=== PATIENT | male | born 1945 | race Caucasian/White ===

== ENCOUNTER 2024-02-08 09:11 | Outpatient (CLI) | payer MEDICARE, SELFPAY ==
[2024-02-08 16:48] LABS: Basophils # 0.1 K/mm3 (0-0.2); Basophils % 1.2 % (0.1-2.0); Eosinophils # 0.3 K/mm3 (0.0-0.4); Eosinophils % 4.5 % (0.1-12.0); Hematocrit 38.7 % (42.0-52.0); Hemoglobin 11.7 g/dL (14.1-18.0); Lymphocytes # 2.3 K/mm3 (0.7-4.5); Lymphocytes % 35.8 % (10-50); Mean Corpuscular HGB Conc 30.3 g/dL (31.8-35.4); Mean Corpuscular Hemoglobin 25.7 pg (27.0-31.2); Mean Corpuscular Volume 84.8 fl (80-94); Monocytes # 0.5 K/mm3 (0.1-1.0); Monocytes % 8.1 % (1.7-9.3); Neutrophils # 3.2 K/mm3 (1.8-7.8); Neutrophils % 50.4 % (37.0-80.0); Platelet Count 245 K/mm3 (142-424); Red Blood Count 4.56 M/mm3 (4.60-6.20); Red Cell Distribution Width 18.1 % (11.5-17.5); White Blood Count 6.3 K/mm3 (4.8-10.8)
[2024-02-08 16:54] LABS: Alanine Aminotransferase 11 U/L (12-78); Albumin/Globulin Ratio 1.3 (1.1-1.8); Alkaline Phosphatase 63 U/L (38-126); Anion Gap 13.2 mEq/L (5-15); Aspartate Amino Transferase 38 U/L (17-59); Bilirubin,Total 0.3 mg/dl (0.2-1.3); Blood Urea Nitrogen 19 mg/dl (9-20); Calcium 9.2 mg/dl (8.4-10.2); Carbon Dioxide 26 mmol/L (22.0-30.0); Chloride 103 mmol/L (98-107); Estimated Glomerular Filt Rate 53 ml/min (>60); GFR (African American) 65 ML/MIN (>60); Globulin 3.1 g/dL (1.3-3.2); Glucose 71 mg/dl (74-100); Potassium 4.2 mmoL/L (3.5-5.1); Sodium 138 mmol/L (136-145); Total Protein,Serum 7.1 g/dl (6.3-8.2)
[2024-02-08 17:25] LABS: Prostate Specific Ag Screen 9.6 ng/ml (0.0-4.0)
== END 2024-02-08 23:59 | disposition home or self-care (01) ==
LOC: LAB.DROPOF 02-10 09:12
PROVIDERS: PCP Family Medicine; Visit Provider Family Medicine
DX: B96.20 Unspecified Escherichia coli [E. coli] as the cause of diseases classified elsewhere (principal); R35.0 Frequency of micturition; I10 Essential (primary) hypertension; Z12.5 Encounter for screening for malignant neoplasm of prostate; F17.210 Nicotine dependence, cigarettes, uncomplicated
CPT/HCPCS: 80053; 85025; 87086; 87088; 87186; G0103

== ENCOUNTER 2024-03-07 12:17 | Outpatient (CLI) | payer MEDICARE, SELFPAY ==
--- NOTE | 2024-03-07 12:18 | US_ITS ---
FINAL REPORT CLINICAL HISTORY: overactive bladder COMPARISON: None FINDINGS: ULTRASOUND BLADDER WITH POST VOID RESIDUAL Bladder volumes were estimated based on 3 dimensional measurements, pre- and postvoid. Prevoid bladder volume: 187 mls Postvoid bladder volume: 120 mls The right ureteral jet is identified. The prostate is not imaged. IMPRESSION: Estimated bladder volumes as above with significant postvoid residual.. Reviewed, Interpreted and Dictated by Andre Ford III, MD Transcribed by Kori Gomez Authenticated and [facility]
--- NOTE | 2024-03-07 12:18 | US_ITS ---
FINAL REPORT CLINICAL HISTORY: overactive bladder COMPARISON: None FINDINGS: RENAL ULTRASOUND Ultrasound images of the kidneys were obtained. The right kidney measures 10.4 cm in length. The left kidney measures 10.0 cm in length. Small left renal cysts are noted. IMPRESSION: Small left renal cysts. Reviewed, Interpreted and Dictated by Andre Ford III, MD Transcribed by Kori Gomez Authenticated and [facility]
--- NOTE | 2024-03-07 12:18 | US_ITS ---
FINAL REPORT CLINICAL HISTORY: Groin pain COMPARISON: None FINDINGS: Limited ultrasound images were obtained of the right groin region. There is a probable right inguinal hernia. An enlarged probable reactive right inguinal node is noted. IMPRESSION: Probable right inguinal hernia. Probable right reactive inguinal node. CT could further evaluate. Reviewed, Interpreted and Dictated by Andre Ford III, MD Transcribed by Kori Gomez Authenticated and . [facility]
--- NOTE | 2024-03-07 12:18 | US_ITS ---
FINAL REPORT CLINICAL HISTORY: Groin pain COMPARISON: None FINDINGS: Limited ultrasound images were obtained of the left groin region. There is no evidence of mass or hernia. IMPRESSION: No evidence of mass or hernia. If indicated, CT may be helpful for further evaluation. Reviewed, Interpreted and Dictated by Andre Ford III, MD Transcribed by Kori Gomez Authenticated and . [facility]
--- NOTE | 2024-03-07 12:18 | MM_ITS ---
PROCEDURE INFORMATION: Exam: Bilateral Diagnostic Breast Tomosynthesis Exam date and time: 03/07/2024 1:11 PM Age: 78 years old Clinical indication: Left breast thickening; C/O enlarged breast with pain. He states he is on some bladder and prostate meds TECHNIQUE: Imaging protocol: Bilateral Diagnostic tomosynthesis and 2D mammography including computer-aided detection (CAD) when performed. Unilateral or bilateral exam. COMPARISON: No relevant prior studies available. FINDINGS: MAMMOGRAPHY: Breast composition: The breasts are almost entirely fatty. Breast mammogram findings: Minimal retroareolar breast tissue is present bilaterally most consistent with benign gynecomastia. There is no stellate mass, architectural distortion or suspicious microcalcifications in either breast to suggest malignancy. No skin thickening or axillary adenopathy. IMPRESSION: Patient should return for left breast ultrasound for full evaluation of breast thickening and pain ASSESSMENT: BI-RADS Category 0: Incomplete- Need Additional Imaging Evaluation and/or Prior Mammograms for Comparison.
== END 2024-03-07 23:59 | disposition home or self-care (01) ==
LOC: RAD 12:18
PROVIDERS: PCP Family Medicine; Visit Provider Urology
DX: N32.81 Overactive bladder (principal); N32.0 Bladder-neck obstruction; N64.4 Mastodynia
CPT/HCPCS: 76770; 76857; 76882; 77062; 77066; G0279

== ENCOUNTER 2024-03-16 10:59 | Outpatient (POV) | payer MEDICARE, SELFPAY | END 2024-03-16 23:59 | disposition home or self-care (01) | LOC: SC 11:00 | PROVIDERS: Visit Provider Specialist/Technologist | DX: Z00.00 Encounter for general adult medical examination without abnormal findings (principal) ==

== ENCOUNTER 2024-05-18 20:55 | Inpatient (IN) | payer MEDICARE, SELFPAY ==
[2024-05-18 20:55] VITALS: BP 100/63; PULSE 79; RESP 18; TEMP 38.3; O2SAT 94; BMI 25.1
--- NOTE | 2024-05-18 21:04 | XR_ITS ---
PROCEDURE INFORMATION: Exam: XR Chest Exam date and time: 05/18/2024 8:59 PM Age: 78 years old Clinical indication: Other: Body aches; Additional info: Fever, body aches TECHNIQUE: Imaging protocol: Radiologic exam of the chest. Views: 2 views. COMPARISON: No relevant prior studies available. FINDINGS: Lungs: Left basilar opacities are noted. Lungs are otherwise clear. Calcified granuloma right upper lung clark. Pleural spaces: Unremarkable. No pleural effusion. No pneumothorax. Heart/Mediastinum: Unremarkable. No cardiomegaly. Bones/joints: Unremarkable. IMPRESSION: Left basilar opacities may be atelectasis although superimposed infiltrates not excluded. Advise short-term follow-up chest x-ray in 3 to 6 weeks to ensure resolution.
--- NOTE | 2024-05-18 21:05 | ECG_ITS ---
APPROVED REPORT Exam: Resting ECG HR:72 bpm ECG Measurements Heart Rate 72 AXES MA 148 P 22 QRSd 101 QRS 31 QT 407 T 97 QTc 432 Conclusion SINUS RHYTHM INCOMPLETE RIGHT BUNDLE BRANCH BLOCK [90+ ms QRS DURATION, TERMINAL R IN V1/V2, 40+ ms S IN I/aVL/V4/V5/V6] ST DEVIATION AND MODERATE T-WAVE ABNORMALITY, CONSIDER LATERAL ISCHEMIA [-0.1+ mV T-WAVE IN I/aVL/V5/V6] Electronically signed by : EVANS MCADAMS, 05/18/2024 22:04:36
[2024-05-18] MEDS: IBUPROFEN 400 MG TABLET PO (21:08)
[2024-05-18] MEDS: LACTATED RINGERS 1155 ML IV (21:08)
--- NOTE | 2024-05-18 21:08 | PC.NURSE ---
up in wc with 1 assist, taken to rad by radio intelligence operator
[2024-05-18 21:09] LABS: Coronavirus 19, PCR Not Detected (NotDetected); Influenza A, PCR Not Detected (NotDetected); Influenza B, PCR Not Detected (NotDetected)
[2024-05-18 21:18] LABS: Chloride 104 mmol/L (98-107)
[2024-05-18 21:19] LABS: Microscopic, Urine URINE MICROSCOPIC (MICROSCOPIC)
[2024-05-18 21:19] LABS: Albumin Level 3.8 g/dl (3.5-5.0); Sodium 133 mmol/L (136-145)
[2024-05-18 21:20] LABS: INR 0.97 (0.9-1.1); Prothrombin Time 10.9 seconds (10.1-12.5)
[2024-05-18 21:21] LABS: Alanine Aminotransferase 18 U/L (12-78); Aspartate Amino Transferase 37 U/L (17-59); Blood Urea Nitrogen 28 mg/dl (9-20); Carbon Dioxide 17 mmol/L (22.0-30.0); Creatinine Clearance Estimated 42 mL/min (50-200); Estimated Glomerular Filt Rate 42 ml/min (>60); GFR (African American) 51 ML/MIN (>60)
[2024-05-18 21:22] LABS: Appearance,Urine SL CLOUDY (Clear); Bilirubin,Urine Negative (Negative); Blood, Urine 1+ (Negative); Color,Urine YELLOW (Yellow); Glucose,Urine (UA) Negative (Negative); Ketones,Urine TRACE (Negative); Leukocyte Esterase,Urine 2+ (Negative); Nitrate,Urine POSITIVE (Negative); PH,Urine 5.5 (5.0-8.5); Protein,Urine 1+ (Negative); Urobilinogen,Urine 0.2 EU/dl (0.2)
[2024-05-18 21:22] LABS: Alkaline Phosphatase 45 U/L (38-126); Bilirubin,Total 0.9 mg/dl (0.2-1.3); Calcium 7.9 mg/dl (8.4-10.2); Glucose 101 mg/dl (74-100)
[2024-05-18 21:25] LABS: Basophils # 0.1 K/mm3 (0-0.2); Basophils % 0.5 % (0.1-2.0); Eosinophils # 0.1 K/mm3 (0.0-0.4); Eosinophils % 0.4 % (0.1-12.0); Hematocrit 38.3 % (42.0-52.0); Hemoglobin 11.5 g/dL (14.1-18.0); Lymphocytes # 1.3 K/mm3 (0.7-4.5); Lymphocytes % 11.4 % (10-50); Mean Corpuscular Volume 83.3 fl (80-94); Mean Platelet Volume 9.8 fl (7.4-10.4); Monocytes # 1.1 K/mm3 (0.1-1.0); Monocytes % 9.1 % (1.7-9.3); Neutrophils # 9.3 K/mm3 (1.8-7.8); Neutrophils % 78.6 % (37.0-80.0); Platelet Count 154 K/mm3 (142-424); Red Blood Count 4.59 M/mm3 (4.60-6.20); White Blood Count 11.8 K/mm3 (4.8-10.8)
[2024-05-18 21:32] LABS: Bacteria,Urine 3+ /lpf; WBC,Urine TNTC #/hpf (0-3)
[2024-05-18 21:34] LABS: Lactic Acid 3.1 mmol/L (0.7-2.1)
[2024-05-18 21:47] LABS: Albumin/Globulin Ratio 1.2 (1.1-1.8); Globulin 3.3 g/dL (1.3-3.2); Total Protein,Serum 7.1 g/dl (6.3-8.2)
--- NOTE | 2024-05-18 21:57 | ED_ITS ---
Discharge Plan Disposition Patient Disposition: Home, Self-Care Condition: Good Prescriptions Prescriptions: New amoxicillin-pot clavulanate 875-125 mg tablet 1 tab PO BID Qty: 20 0RF No Action doxepin 25 mg capsule 25 mg PO HS Qty: 30 1RF oxybutynin chloride 10 mg tablet extended release 24hr 10 mg PO DAILY Qty: 90 3RF tamsulosin [Flomax] 0.4 mg capsule 0.4 mg PO DAILY Qty: 30 3RF amlodipine 2.5 mg tablet 2.5 mg PO DAILY Qty: 30 2RF Referrals Follow up/Referrals: Calos Odom MD [Primary Care Provider] - See instructions Activity Restrictions/Add. Instructions Additional Instructions/Restrictions: It is very important that you take your antibiotics as prescribed and follow-up with your primary care provider closely for continued evaluation and management or return or call the ambulance at any time for any worsening of her symptoms or if you are not improving despite taking antibiotics. Clinical Impressions Clinical Impression: Acute UTI, Pneumonia Instructions Patient Instructions: Pneumonia-Adult Print Language Print Language: R[place] Discharge ED Provider: Sylvia Stephens General Adult HPI General Chief complaint: Fever Stated complaint: SOB, cold symptoms Time Seen by Provider: 05/18/24 21:03 Mode of Arrival: EMS Source of Information: Patient Limitations: No Limitations Description of Symptoms (Recalled from ER Triage Doc. by RN): Patient presented to the ED for generally not feeling well. Patient states he has not felt well for the last few days. He states that he drinks a couple beers every day and is a poor historian but did mention having horrible body aches yesterday. EMS stated patient c/o just not feeling well and feeling SOA. Patient does not c/o being SOA at this time, o2 sats mid to high 90s on RA. Oral temp 101. History of Present Illness HPI narrative: Patient is a 78-year-old male with past medical history alcohol use disorder presenting with generalized malaise and not feeling well. Patient arrives via EMS and states that he has not felt well for the past couple of days. He reports drinking a couple of beers per day but does have a history of alcohol use disorder. He notes some bodyaches and chills yesterday and he did have a family reunion that he went to recently but no known specific sick contacts. He had initially complained of being short of breath but did not note this to EMS nor at present. Denies any chest pain, abdominal pain, nausea, vomiting. Related Data Previous Rx's ?Medication ?Instructions ?Recorded doxepin 25 mg capsule 25 mg PO HS sleep #30 caps 02/09/24 oxybutynin chloride 10 mg 10 mg PO DAILY #90 tabs 03/21/24 tablet,extended release 24 hr tamsulosin 0.4 mg capsule (Flomax) 0.4 mg PO DAILY #30 caps 03/21/24 amlodipine 2.5 mg tablet 2.5 mg PO DAILY #30 tabs 03/28/24 amoxicillin 875 mg-potassium 1 tab PO BID #20 tabs 05/18/24 clavulanate 125 mg tablet Allergies Allergy/AdvReac Type Severity Reaction Status Date / Time NO KNOWN ALLERGIES Allergy Uncoded 03/28/24 14:30 [facility] Disclaimer: The information contained in this section may have been updated after the patient was seen, as this information can be updated by other users. 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 bilaterally Tinnitus Complications affecting other specified body systems, hypertension Traumatic amputation of left arm Hypertension Surgical History H/O colonoscopy 2022 Family History Other Cancer Hypertension Social History Smoking Status: Current every day smoker tobacco type: cigarettes alcohol intake: former current occupational status: retired Travel in the last 8 weeks: Inside the [employer] ROS Obtained: Yes Systems reviewed as appropriate & no additional complaints except as documented Physical Exam General General appearance: alert, in no apparent distress and other (Smells of alcohol and cigarettes) ENT ENT exam: Present mucous membranes moist Neck Neck exam: Present normal inspection Chest Chest inspection: Present normal inspection and symmetric chest wall rise Respiratory Respiratory exam: Present normal lung sounds bilaterally; Absent respiratory distress Cardiovascular Cardiovascular exam: Present regular rate and normal rhythm Abdominal Exam Abdominal exam: Present soft; Absent tenderness Extremities Exam Extremities exam: Present normal inspection and other (Status post remote amputation of the left upper extremity) Neurological Exam Neurological exam: Present alert and oriented X3 Psychiatric Psychiatric exam: Present normal affect Medical Decision Making Medical Records Medical records reviewed: Yes I reviewed the patient's medical records. Osmin Inquiry Pt receiving controlled substance: No Vital Signs: 05/18/24 20:55 Temperature 101 F H Temperature Source Oral Pulse Rate [Right Brachial] 79 Respiratory Rate 18 Blood Pressure [Right Arm] 100/63 L Blood Pressure Mean [Right Arm] 75 Blood Pressure Source [Right Arm] Automatic Cuff Blood Pressure Position [Right Arm] Sitting 02 Sat by Pulse Oximetry 94 L Oxygen Delivery Method Room Air Lab Data Lab results reviewed: Yes I reviewed the patient's lab results. Lab Results 05/18/24 20:55: PT 10.9, INR 0.97, Sodium 133 L, Potassium 4.0, Chloride 104, C arbon Dioxide 17 L, Anion Gap 16.0 H, BUN 28 H, Creatinine 1.60 H, Estimated Creat Clear 42, Estimated GFR 42 L, Est GFR ( Amer) 51 L, Glucose 101 H, Lactate 3.1 H, Calcium 7.9 L, Total Bilirubin 0.9, AST 37, ALT 18, Alkaline Phosphatase 45, Total Protein 7.1, Albumin 3.8, Globulin 3.3 H, Albumin/Globulin Ratio 1.2 05/18/24 20:58: SARS-CoV-2 (PCR) Not detected, Influenza A Untype (PCR) Not detected, Influenza Type B (PCR) Not detected 05/18/24 21:15: WBC 11.8 H, RBC 4.59 L, Hgb 11.5 L, Hct 38.3 L, MCV 83.3, MCH 25.0 L, MCHC 30.0 L, RDW 18.0 H, Plt Count 154, MPV 9.8, Neut % (Auto) 78.6, Lymph % (Auto) 11.4, [place] % (Auto) 9.1, Eos % (Auto) 0.4, Baso % (Auto) 0.5, N eut # (Auto) 9.3 H, Lymph # (Auto) 1.3, [place] # (Auto) 1.1 H, Eos # (Auto) 0.1, Baso # (Auto) 0.1 05/18/24 21:16: Urine Color Yellow, Urine Appearance Sl cloudy, Urine pH 5.5, Ur Specific [place] 1.020, Urine Protein 1+ A, Urine Glucose (UA) Negative, Urine Ketones Trace, Urine Blood 1+ A, Urine Nitrate Positive, Urine Bilirubin Negative, Urine Urobilinogen 0.2, Ur Leukocyte Esterase 2+ A, Urine RBC 5-10, Urine WBC Tntc, Ur Squamous Epith Cells 5-10, Urine Bacteria 3+, Coarse Granular Casts 3-5 05/18/24 21:55: Plasma/Serum Alcohol 130 H 05/18/24 21:15 05/18/24 20:55 Orders (Tests/Meds): ED MEDICATIONS Generic Name Dose Route Start Last Admin Trade Name Freq PRN Reason Stop Dose Admin Ceftriaxone Sodium 1 gm/ 50 mls @ 100 mls/hr 05/18/24 21:45 05/18/24 22:07 Sodium Chloride IV 05/28/24 21:44 100 mls/hr Q24H KHAI Administration Discontinued Medications Generic Name Dose Route Start Last Admin Trade Name Freq PRN Reason Stop Dose Admin Lactated Ringer's 2,310 mls @ 1,155 mls/hr 05/18/24 21:03 05/18/24 21:08 Lactated Ringer's 1000 Ml Bag 30 ml/kg infuse over 2 hr (2310 ml) 05/18/24 23:02 1,155 mls/hr IV Administration .Q2H ONE Protocol Ibuprofen 400 mg 05/18/24 21:05 05/18/24 21:08 Ibuprofen 400 Mg Tablet PO 05/18/24 21:06 400 mg ONCE ONE Administration ORDERS Category Date Time Status Consult Melting Furnace Skimmer [CONS] Routine Cons 05/18/24 21:11 Active XR chest 2V Stat Exams 05/18/24 21:04 Completed Blood alcohol [Ethyl Alcohol] Stat Lab 05/18/24 21:55 Completed Complete Blood Count Auto Diff Stat Lab 05/18/24 21:15 Completed Comprehensive Metabolic Panel Stat Lab 05/18/24 20:55 Completed Lactic Acid Stat Lab 05/18/24 20:55 Completed Prothrombin Time INR Stat Lab 05/18/24 20:55 Completed Rapid PCR Covid and Flu A/B Stat Lab 05/18/24 20:58 Completed Urinalysis and Microscopic Stat Lab 05/18/24 21:16 Completed Blood Culture Stat Micro 05/18/24 21:15 Received Urine Culture Stat Micro 09/11/24 21:16 Received ECG Data Tracing #1: I reviewed this ECG and interpreted as documented below: EKG showing sinus rhythm at a rate of 72, normal intervals, incomplete right bundle branch block and does have some T wave inversion in V4, V5 and V6 ECG initial impression date: 05/18/24 ECG initial impression time: 21:05 Medical Decision Narrative: Patient is a 78-year-old male with past medical history alcohol use disorder and status post resection of left upper extremity remotely presenting with generalized malaise and not feeling well over the past couple of days. He is a poor historian and not able to specify particular days of illness but states he just feels generally unwell. Did have a family reunion recently but no known specific sick contacts. He denies any shortness of breath, chest pain, abdominal pain, nausea, vomiting. His exam is overall unremarkable but he does smell profusely of alcohol and cigarettes. He does note some alcohol use and states he drinks a couple of beers per day. Family had called EMS as they were concerned about possible illness. He is febrile on presentation but otherwise hemodynamically stable. EKG without acute ischemia or infarction but does show some remote changes, CBC without leukocytosis at 11 but CMP is notable for a creatinine of 1.6 which is slightly elevated from 1.3 on 6 3 of this year, anion gap of 16 though glucose is 101 likely secondary to alcoholic ketosis, lactate is elevated to 3.1 and urine is infectious. He was given sepsis dose fluids 30 mL/kg and started on Rocephin for UTI. Chest x-ray also showing a left basilar opacity possible pneumonia. Alcohol is elevated to 130. I did reevaluate patient 2 hours after initiating fluids and antibiotics and patient did have improvement in his symptoms. I did offer admission given patient with UTI, fever and possible new pneumonia. However patient adamantly refuses to be admitted and would like to be discharged. I therefore discussed the importance of taking his antibiotics and we can prescribe him Augmentin to cover both pneumonia and UTI. His family was also at bedside during this discussion and agree and state that they will help patient to take the antibiotic. Sent Augmentin to preferred pharmacy and given first dose of antibiotics while in the emergency department. Discussed strict return precautions with patient and family and family states they will call EMS for any decline or concern considering his UTI and pneumonia. Discharged in stable condition. Critical Care Critical Care Time Critical Care Time: No
[2024-05-18 22:00] VITALS: BP 110/68; PULSE 72; RESP 18; O2SAT 94
[2024-05-18] MEDS: CEFTRIAXONE SODIUM 1 GM in 0.9 % SODIUM CHLORIDE 50 ML IV (22:07)
[2024-05-18 22:18] LABS: Ethyl Alcohol 130 mg/dl (0-10)
[2024-05-18 23:00] VITALS: BP 114/72; PULSE 82; RESP 18; O2SAT 94
[2024-05-19] VITALS (11 sets, daily range): BP systolic 103–132; BP diastolic 50–75; PULSE 60–130; RESP 14–20; TEMP 36.6–38.8; O2SAT 92–100; BMI 26.4
[2024-05-19 00:16] LABS: Lactic Acid 4.1 mmol/L (0.7-2.1)
--- NOTE | 2024-05-19 00:25 | PC.NURSE ---
warehouse man notified of admission
[2024-05-19] MEDS: AZITHROMYCIN 500 MG in 0.9 % SODIUM CHLORIDE 250 ML 250 MG IV ×2 (00:28→21:03)
--- NOTE | 2024-05-19 00:29 | EXP.HP ---
History of Present Illness *Admission Date: 05/19/24 *Reason for visit:: Shortness of air *History of present illness: This is a 78-year-old male with PMHx alcohol use disorder presenting with generalized malaise and not feeling well. Patient arrives via EMS and states that he has not felt well for the past couple of days. He reports drinking a couple of beers per day but does have a history of alcohol use disorder. He notes some bodyaches, fever and chills yesterday and he did have a family reunion that he went to recently but no known specific sick contacts. He had initially complained of being short of breath but did not note this to EMS nor at present. Denies any chest pain, abdominal pain, nausea, vomiting. Admitted for further treatment and management. [facility] Medical History (Updated 05/19/24 @ 06:30 by [place] APRN) Ear canal abrasion SNHL (sensorineural hearing loss) Tinnitus Complications affecting other specified body systems, hypertension Traumatic amputation of left arm Hypertension Surgical History H/O colonoscopy Family History Other Cancer Hypertension Social History Smoking Status: Current every day smoker tobacco type: cigarettes alcohol intake: current current occupational status: retired Travel in the last 8 weeks: Inside the [facility] Meds Home Medications and Allergies Home Medications ?Medication ?Instructions ?Recorded ?Confirmed ?Type doxepin 25 mg capsule 25 mg PO HS sleep #30 caps 02/09/24 05/19/24 Rx oxybutynin chloride 10 mg 10 mg PO DAILY #90 tabs 03/21/24 05/19/24 Rx tablet,extended release 24 hr tamsulosin 0.4 mg capsule (Flomax) 0.4 mg PO DAILY #30 caps 03/21/24 05/19/24 Rx amlodipine 2.5 mg tablet 2.5 mg PO DAILY #30 tabs 03/28/24 05/19/24 Rx amoxicillin 875 mg-potassium 1 tab PO BID #20 tabs 05/18/24 Rx clavulanate 125 mg tablet New Prescriptions to Start Prescriptions: amoxicillin-pot clavulanate Sylvia Stephens Allergies Allergy/AdvReac Type Severity Reaction Status Date / Time No Known Allergies Allergy Unverified 05/19/24 07:14 Exam Data for Last 24 hours Vital signs and Labs for Last 24 Hours: Temp Pulse Resp BP Pulse Ox O2 Del Method 101 F H 79 18 100/63 L 94 L Room Air 05/18/24 20:55 05/18/24 20:55 05/18/24 20:55 05/18/24 20:55 05/18/24 20:55 05/18/24 20:55 Laboratory Results - last 24 hr 05/18/24 20:55: PT 10.9, INR 0.97, Sodium 133 L, Potassium 4.0, Chloride 104, Carbon Dioxide 17 L, Anion Gap 16.0 H, BUN 28 H, Creatinine 1.60 H, Estimated Creat Clear 42, Estimated GFR 42 L, Est GFR ( Amer) 51 L, Glucose 101 H, Lactate 3.1 H, Calcium 7.9 L, Total Bilirubin 0.9, AST 37, ALT 18, Alkaline Phosphatase 45, Total Protein 7.1, Albumin 3.8, Globulin 3.3 H, Albumin/Globulin Ratio 1.2 05/18/24 20:58: SARS-CoV-2 (PCR) Not detected, Influenza A Untype (PCR) Not detected, Influenza Type B (PCR) Not detected 05/18/24 21:15: WBC 11.8 H, RBC 4.59 L, Hgb 11.5 L, Hct 38.3 L, MCV 83.3, MCH 25.0 L, MCHC 30.0 L, RDW 18.0 H, Plt Count 154, MPV 9.8, Neut % (Auto) 78.6, Lymph % (Auto) 11.4, [place] % (Auto) 9.1, Eos % (Auto) 0.4, Baso % (Auto) 0.5, Neut # (Auto) 9.3 H, Lymph # (Auto) 1.3, [place] # (Auto) 1.1 H, Eos # (Auto) 0.1, Baso # (Auto) 0.1 05/18/24 21:16: Urine Color Yellow, Urine Appearance Sl cloudy, Urine pH 5.5, Ur Specific [place] 1.020, Urine Protein 1+ A, Urine Glucose (UA) Negative, Urine Ketones Trace, Urine Blood 1+ A, Urine Nitrate Positive, Urine Bilirubin Negative, Urine Urobilinogen 0.2, Ur Leukocyte Esterase 2+ A, Urine RBC 5-10, Urine WBC Tntc, Ur Squamous Epith Cells 5-10, Urine Bacteria 3+, Coarse Granular Casts 3-5 05/18/24 21:55: Plasma/Serum Alcohol 130 H 05/18/24 23:30: Lactate 4.1 H I & O for Last 24 hours: Intake & Output 05/16/24 05/17/24 05/18/24 05/19/24 23:59 23:59 23:59 23:59 Weight 77.111 kg Constitutional Constitutional: moderate distress and obtunded *Routine HEENT Exam Head: Present normocephalic Eye: Present EOMI and PERRL ENT: Present mucous membranes moist *Routine Neck Exam Neck: Present supple; Absent lymphadenopathy *Routine Respiratory Exam Respiratory: Present CTA bilaterally and diminished air movement; Absent respiratory distress *Routine Cardiovascular Exam Cardiovascular: Present RRR, Normal S1, Normal S2 and tachycardia *Routine Abdominal Exam Abdominal: Present soft and normoactive bowel sounds; Absent tenderness *Routine Rectal Exam Rectal:: deferred *Routine Genitalia Exam Genitalia:: deferred *Routine Extremities Exam Extremities: Absent cyanosis, clubbing or edema *Routine Skin Exam Skin: Present warm; Absent rash *Routine Neurological Exam Neurological: Present alert, sensory deficit, motor deficit, altered mental status and moving all extremities; Absent oriented X3 Routine Psychiatric Exam Psychiatric: Present unable to assess H&P: Result Imaging and Cardiology EKG: Status: image reviewed by me, Preliminary report and final report Chest x-ray: Status: image reviewed by me, Preliminary report and final report Assessment and Plan *Assessment and plan (1) Sepsis: Status: Acute Qualifiers: Sepsis acute organ dysfunction status: without acute organ dysfunction Sepsis type: sepsis due to unspecified organism Qualified Code(s): A41.9 - Sepsis, unspecified organism Category: Medical Code(s): A41.9 - Sepsis, unspecified organism (2) Lactic acid acidosis: Status: Acute Category: Medical Code(s): E87.20 - Acidosis, unspecified (3) Pneumonia: Status: Acute Qualifiers: Laterality: left Lung location: unspecified part of lung Pneumonia type: due to unspecified organism Qualified Code(s): J18.9 - Pneumonia, unspecified organism Category: Medical Code(s): J18.9 - Pneumonia, unspecified organism (4) Acute UTI: Status: Acute Category: Medical Code(s): N39.0 - Urinary tract infection, site not specified (5) Prostate nodule: Status: Acute Category: Medical Code(s): N40.2 - Nodular prostate without lower urinary tract symptoms (6) Bladder outlet obstruction: Status: Acute Category: Medical Code(s): N32.0 - Bladder-neck obstruction (7) Alcohol intoxication: Status: Acute Qualifiers: Complication of substance-induced condition: uncomplicated Qualified Code(s): F10.920 - Alcohol use, unspecified with intoxication, uncomplicated Category: Medical Code(s): F10.929 - Alcohol use, unspecified with intoxication, unspecified Plan 78-year-old male with PMHx alcohol use disorder presenting with generalized malaise and not feeling well. On arrival he is febrile on presentation otherwise hemodynamically stable. CBC with leukocytosis at 11.8. CMP is notable for a creatinine of 1.6 which is slightly elevated from 1.3, previously this year, anion gap of 16 though glucose is 101 likely secondary to alcoholic ketosis, lactate is elevated to 3.1 and urine is infectious. He was given sepsis dose fluids 30 mL/kg and started on Rocephin for UTI. Chest x-ray also showing a left basilar opacity possible pneumonia. Alcohol is elevated to 130. Patient expressed wishes of leaving AMA. after discussion with family members he decided to stay. Still high risk of AMA> Case discussed with ED. due to high risk for complications and sepsis. decision was made for inpatient management. Plan as follow: -Sepsis without septic shock, likely secondary to community-acquired pneumonia and UTI Lactic acidosis, presumed from alcohol intoxication versus sepsis component Admit patient. Dispo MedSurg. Continuous cardiac telemetry Started on Rocephin and azithromycin IV Sputum blood culture and UA pending Monitor for bronchospasm sepsis. Hold hypertensive medication in the setting of sepsis Monitor for [facility] protocol Repeat labs in the morning Monitor for creatinine, WBC -History of prostate nodule bladder obstruction Patient on tamsulosin and oxybutynin Reconciled Lovenox for DVT prophylaxis on Protonix for current GI bleed protection Full code
--- NOTE | 2024-05-19 00:41 | PC.NURSE ---
Report called to Cristino BLACK
[2024-05-19] MEDS: 0.9 % SODIUM CHLORIDE 1000ML 1,000 ML 50 ML IV ×2 (00:45→21:07)
[2024-05-19 00:47] LABS: Barbiturates Screen,Urine Negative ng/ml (<200)
[2024-05-19 00:49] LABS: Amphetamine/Metha Screen,Urine Negative ng/ml (<1000); Cannabinoid Screen,Urine Negative ng/ml (<50)
[2024-05-19 00:50] LABS: Cocaine Screen,Urine Negative ng/ml (<300); Methadone Screen,Urine Negative ng/ml (<300)
[2024-05-19 00:51] LABS: Opiate Screen,Urine Negative ng/ml (<300)
[2024-05-19 00:52] LABS: Phencyclidine Screen,Urine Negative ng/ml (<25)
--- NOTE | 2024-05-19 00:58 | PC.NURSE ---
Patient arrived to floor via wheelchair from Ed at 00:50.
[2024-05-19 01:07] LABS: Benzodiazepines Screen,Urine Negative ng/ml (<200)
--- NOTE | 2024-05-19 01:19 | PC.NURSE ---
Patient arrived to floor via wheelchair from ED at 01:18.
--- NOTE | 2024-05-19 02:51 | PC.NURSE ---
upon arriving to the floor, patient was encouraged to take a shower - first agreeable then denied quickly after and now refuses. patient has a bed alarm on and educated on how to use a call light, but doesn't comply well. patient attempted to get up on his own and ripped IV out.
[2024-05-19] MEDS: ONDANSETRON 4MG/2ML VIAL 4 MG IV (03:38)
[2024-05-19] MEDS: LORazepam 2MG/ML VIAL 1 MG IV (03:38)
[2024-05-19 03:42] LABS: Reflex Lactic Add Lactic Reflex
[2024-05-19] MEDS: IPRATROPIUM/ALBUTEROL 3 ML NEB IH (03:54)
[2024-05-19 04:18] LABS: Lactic Acid Follow Up (RFLX 1) 2.7 mmol/L (0.7-2.1)
--- NOTE | 2024-05-19 04:59 | PC.NURSE ---
Patient has been given an IS and educated on how to use it. Continues to get up out of bed without pressing call light and is very wobbly, with tremors, and vomiting x3 - SEE MAR FOR TX. Patient has voided in the flood numerous times trying to use the urinal and became SOA - 2L NC applied. Audible wheezes noted, duonebs ordered. Purewick applied to patient to decrease exertion and risk of falling in urine overnight. Bed alarm on for safety. Seizure pads in place on bed rails. NSR/ST on tele.
[2024-05-19] MEDS: ACETAMINOPHEN 325MG TAB 650 MG PO ×2 (05:06→15:25)
[2024-05-19 06:03] LABS: Reflex Lactic (2 hrs) Add Lactic Reflex
[2024-05-19 06:41] LABS: Lactic Acid Follow up (RFLX 2) 0.9 mmol/L (0.7-2.1)
[2024-05-19 06:46] LABS: Alanine Aminotransferase 20 U/L (12-78); Albumin Level 3.4 g/dl (3.5-5.0); Alkaline Phosphatase 64 U/L (38-126); Anion Gap 12.8 mEq/L (5-15); Aspartate Amino Transferase 29 U/L (17-59); Bilirubin,Total 0.8 mg/dl (0.2-1.3); Blood Urea Nitrogen 28 mg/dl (9-20); Calcium 8.2 mg/dl (8.4-10.2); Carbon Dioxide 22 mmol/L (22.0-30.0); Chloride 104 mmol/L (98-107); Creatinine Clearance Estimated 54 mL/min (50-200); Estimated Glomerular Filt Rate 53 ml/min (>60); GFR (African American) 65 ML/MIN (>60); Globulin 3.4 g/dL (1.3-3.2); Glucose 110 mg/dl (74-100); Potassium 3.8 mmoL/L (3.5-5.1); Sodium 135 mmol/L (136-145); Total Protein,Serum 6.8 g/dl (6.3-8.2)
[2024-05-19 06:54] LABS: Basophils % 0.4 % (0.1-2.0); Eosinophils % 0.1 % (0.1-12.0); Hematocrit 39.8 % (42.0-52.0); Lymphocytes # 0.5 K/mm3 (0.7-4.5); Lymphocytes % 5.3 % (10-50); Mean Corpuscular Hemoglobin 25.2 pg (27.0-31.2); Mean Corpuscular Volume 83.9 fl (80-94); Mean Platelet Volume 9.9 fl (7.4-10.4); Monocytes # 0.8 K/mm3 (0.1-1.0); Monocytes % 8.4 % (1.7-9.3); Neutrophils # 7.9 K/mm3 (1.8-7.8); Neutrophils % 85.7 % (37.0-80.0); Platelet Count 142 K/mm3 (142-424); Red Blood Count 4.75 M/mm3 (4.60-6.20); Red Cell Distribution Width 17.9 % (11.5-17.5); White Blood Count 9.2 K/mm3 (4.8-10.8)
[2024-05-19 07:07] LABS: MANUAL DIFFERENTIAL MANUAL DIFFERENTIAL (MANUAL DIFF)
--- NOTE | 2024-05-19 08:14 | HMH.PHAINT1 ---
Pharmacy Intervention Comments: HOME MEDICATION LIST VERIFIED USING LIST FROM OUTPATIENT PHARMACY
[2024-05-19] MEDS: THIAMINE 100MG TABLET 100 MG PO (10:12)
[2024-05-19] MEDS: FOLIC ACID 1MG TABLET 1 MG PO (10:12)
[2024-05-19] MEDS: OXYBUTYNIN 10 MG 1 EACH PO (10:12)
[2024-05-19 10:21] LABS: Hypochromasia 2+; Lymphocytes % 4 % (10-50); Monocytes % 1 % (2-9); Neutrophils % 94 % (42-76); Platelet Estimate Slight Decrease; Total Cells Counted 100
--- NOTE | 2024-05-19 12:16 | PC.NURSE ---
pt refused iv fluids.
[2024-05-19] MEDS: LORazepam 1MG TABLET 1 MG PO (14:35)
[2024-05-19] MEDS: HALOPERIDOL LACTATE 5 MG/ML VIAL IV (15:35)
--- NOTE | 2024-05-19 15:50 | PC.NURSE ---
Pt. aox 4, assist times one to restroom, bed alarm active, last CIWA of 7, some agitation noted and haldol iv given, pt purewick in place, 02- 2l nc sats in the 90's, temp 101.3 and Tylenol given, needs sputm.
--- NOTE | 2024-05-19 16:29 | EXP.PN ---
Subjective *Date: 05/19/24 *Time: 16:29 Interval history: The patient is seen and examined at bedside. I am accompanied by his nurse Boris. Nursing staff report a Tmax of 101.3 with improved heart rates, stable blood pressures and saturating appropriately on 2 L of oxygen via nasal cannula. His morning labs identify an improved leukocytosis with a normal WBC 9.2, hemoglobin of 12, hematocrit 39.8 and platelet count 142. His INR is normal. His sodium has improved, potassium and electrolytes are normal. BUN is 28 and creatinine has improved to 1.3 (baseline 1.2). His magnesium and LFTs are normal. Exam Data for Last 24 hours Vital signs and Labs for Last 24 Hours: Temp Pulse Resp BP Pulse Ox O2 Del Method O2 Flow Rate 101.3 F H 70 20 132/62 96 Nasal Cannula 2 05/19/24 16:00 05/19/24 16:00 05/19/24 16:00 05/19/24 16:00 05/19/24 16:00 05/19/24 16:00 05/19/24 12:00 Laboratory Results - last 24 hr 05/18/24 20:55: PT 10.9, INR 0.97, Sodium 133 L, Potassium 4.0, Chloride 104, Carbon Dioxide 17 L, Anion Gap 16.0 H, BUN 28 H, Creatinine 1.60 H, Estimated Creat Clear 42, Estimated GFR 42 L, Est GFR ( Amer) 51 L, Glucose 101 H, Lactate 3.1 H, Calcium 7.9 L, Total Bilirubin 0.9, AST 37, ALT 18, Alkaline Phosphatase 45, Total Protein 7.1, Albumin 3.8, Globulin 3.3 H, Albumin/Globulin Ratio 1.2 05/18/24 20:58: SARS-CoV-2 (PCR) Not detected, Influenza A Untype (PCR) Not detected, Influenza Type B (PCR) Not detected 05/18/24 21:15: WBC 11.8 H, RBC 4.59 L, Hgb 11.5 L, Hct 38.3 L, MCV 83.3, MCH 25.0 L, MCHC 30.0 L, RDW 18.0 H, Plt Count 154, MPV 9.8, Neut % (Auto) 78.6, Lymph % (Auto) 11.4, [place] % (Auto) 9.1, Eos % (Auto) 0.4, Baso % (Auto) 0.5, Neut # (Auto) 9.3 H, Lymph # (Auto) 1.3, [place] # (Auto) 1.1 H, Eos # (Auto) 0.1, Baso # (Auto) 0.1 05/18/24 21:16: Urine Color Yellow, Urine Appearance Sl cloudy, Urine pH 5.5, Ur Specific [place] 1.020, Urine Protein 1+ A, Urine Glucose (UA) Negative, Urine Ketones Trace, Urine Blood 1+ A, Urine Nitrate Positive, Urine Bilirubin Negative, Urine Urobilinogen 0.2, Ur Leukocyte Esterase 2+ A, Urine RBC 5-10, Urine WBC Tntc, Ur Squamous Epith Cells 5-10, Urine Bacteria 3+, Coarse Granular Casts 3-5, Urine Opiates Screen Negative, Urine Methadone Screen Negative, Ur Barbituates Screen Negative, Ur Phencyclidine Scrn Negative, Ur Amphetamines Screen Negative, U Benzodiazepines Scrn Negative, Urine Cocaine Screen Negative, U Marijuana (THC) Screen Negative 05/18/24 21:55: Plasma/Serum Alcohol 130 H 05/18/24 23:30: Lactate 4.1 H 05/19/24 04:00: Lactate 2.7 H 05/19/24 05:22: WBC 9.2, RBC 4.75, Hgb 12.0 L, Hct 39.8 L, MCV 83.9, MCH 25.2 L, MCHC 30.0 L, RDW 17.9 H, Plt Count 142, MPV 9.9, Neut % (Auto) 85.7 H, Lymph % (Auto) 5.3 L, [place] % (Auto) 8.4, Eos % (Auto) 0.1, Baso % (Auto) 0.4, Neut # (Auto) 7.9 H, Lymph # (Auto) 0.5 L, [place] # (Auto) 0.8, Eos # (Auto) 0.0, Baso # (Auto) 0.0, Total Counted 100, Neutrophils % (Manual) 94 H, Lymphocytes % (Manual) 4 L, Monocytes % (Manual) 1 L, Basophils % (Manual) 1.0, Platelet Estimate Slight decrease, Hypochromasia 2+, Sodium 135 L, Potassium 3.8, Chloride 104, Carbon Dioxide 22, Anion Gap 12.8, BUN 28 H, Creatinine 1.30 H, Estimated Creat Clear 54, Estimated GFR 53 L, Est GFR ( Amer) 65 D, Glucose 110 H, Calcium 8.2 L, Magnesium 2.0, Total Bilirubin 0.8, AST 29, ALT 20, Alkaline Phosphatase 64, Total Protein 6.8, Albumin 3.4 L D, Globulin 3.4 H, Albumin/Globulin Ratio 1.0 L 05/19/24 06:09: Lactate 0.9 I & O for Last 24 hours: Intake & Output 05/16/24 05/17/24 05/18/24 05/19/24 23:59 23:59 23:59 23:59 Intake Total 380 / 380 Output Total 400 / 400 Balance - Weight 77.111 kg 80.83 kg Microbiology Reports for the Last 24 Hours: Microbiology 05/18/24 21:15 Blood Blood Culture - Preliminary 05/18/24 21:15 Blood Blood Culture - Preliminary 05/18/24 21:16 Urine,Clean Catch Urine Culture - Preliminary Constitutional Constitutional: no acute distress, chronically ill appearing and cooperative *Routine HEENT Exam Head: Present normocephalic and atraumatic Eye: Present EOMI and PERRL ENT: Present mucous membranes moist *Routine Neck Exam Neck: Absent JVD or lymphadenopathy *Routine Respiratory Exam Respiratory: Present rhonchi, normal respiratory effort and symmetric chest movement *Routine Cardiovascular Exam Cardiovascular: Present RRR *Routine Abdominal Exam Abdominal: Present soft and normoactive bowel sounds; Absent tenderness *Routine Extremities Exam Extremities: Present full ROM and pulses intact; Absent edema *Routine Skin Exam Skin: Present intact; Absent rash *Routine Neurological Exam Neurological: Present alert, oriented X3, moving all extremities, vision grossly intact, hearing grossly intact and normal speech; Absent sensory deficit or motor deficit Routine Psychiatric Exam Psychiatric: Present cooperative Assessment and Plan *Assessment and plan (1) Severe sepsis: Status: Acute Category: Medical Code(s): A41.9 - Sepsis, unspecified organism; R65.20 - Severe sepsis without septic shock (2) Aspiration pneumonia: Status: Acute Category: Medical Code(s): J69.0 - Pneumonitis due to inhalation of food and vomit (3) Alcohol use disorder, severe, dependence: Status: Acute Category: Medical Code(s): F10.20 - Alcohol dependence, uncomplicated (4) Alcohol intoxication: Status: Acute Qualifiers: Complication of substance-induced condition: uncomplicated Qualified Code(s): F10.920 - Alcohol use, unspecified with intoxication, uncomplicated Category: Medical Code(s): F10.929 - Alcohol use, unspecified with intoxication, unspecified (5) Hypertension: Status: Acute Category: Medical Code(s): I10 - Essential (primary) hypertension (6) BPH with elevated PSA: Status: Acute Category: Medical Code(s): N40.0 - Benign prostatic hyperplasia without lower urinary tract symptoms; R97.20 - Elevated prostate specific antigen [PSA] Plan This is a 78-year-old male with alcohol use disorder and intoxication who presented with fever, tachycardia, tachypnea identified left lower lobe pneumonia and lactic acidosis. Problems addressed as follows: Severe sepsis, present on admission Fever, tachypnea, tachycardia, lactic acidosis, source on chest x-ray IV fluid resuscitation with normalized lactic acid Blood cultures pending Urine culture pending Trending labs and inflammatory markers IV antibiotic therapy Aspiration pneumonia Acute hypoxic respiratory failure Pulse oximetry monitoring Oxygen therapy to maintain appropriate oxygen saturations Currently requiring 2 L Chest x-ray with left lower lobe infiltrate Blood cultures pending Trending labs and inflammatory markers IV Rocephin IV azithromycin Iman/Eve inhalation therapy as needed Aspiration precautions Appropriate positioning during and after mealtimes Alcohol use disorder severe dependence Alcohol intoxication Telemetry monitoring CIWA protocol Thiamine replacement therapy Multivitamin folic acid replacement therapy Benzodiazepine therapy Parenterally administered controlled substance for comfort care Hypertension Routine blood pressure monitoring Dihydropyridine calcium channel stanislav therapy BPH with elevated PSA Obstructive uropathy Accurate I's and O's Alpha-stanislav therapy Acute kidney injury-resolved The patient is hospitalized day 1 with above diagnoses complicated by his alcohol use disorder. Case management is assisting with discharge planning. Barriers to discharge currently include ongoing CIWA evaluations and required parenterally administered controlled substance for comfort care. We will continue with pneumonia therapy and routine ancillary evaluations to assess mobility. Expected day of discharge cannot be determined at present time.
[2024-05-19] MEDS: DOXEPIN HCL 25 MG PO (21:03)
[2024-05-19] MEDS: PAT OWN MED ***TAMSULOSIN 0.4MG 0.4 MG PO (21:03)
[2024-05-19] MEDS: PANTOPRAZOLE 40MG TABLET 40 MG PO (21:03)
[2024-05-19] MEDS: CEFTRIAXONE SODIUM 1 GM in 0.9 % SODIUM CHLORIDE 50 ML IV (22:26)
--- NOTE | 2024-05-19 23:37 | PC.NURSE ---
Pt is awake and doing incentive spirometry at this time.
[2024-05-20] VITALS (8 sets, daily range): BP systolic 112–157; BP diastolic 54–87; PULSE 63–98; RESP 16–19; TEMP 37–38; O2SAT 95–100; BMI 27.1
[2024-05-20] MEDS: ACETAMINOPHEN 325MG TAB 650 MG PO ×2 (00:56→21:16)
--- NOTE | 2024-05-20 05:43 | PC.NURSE ---
Alert and oriented. Has rested throughout the night. No complaints from patient. Fever was noted, treated per nov. Patient has remained on room air throughout the night, O2 sat >90%. Pt has used incentive spirometry when awake. Patient given coffee this AM. Uses purewick due to incontinence at this time. CIWAs Q4. Bed alarm on. Call light in reach.
[2024-05-20 06:37] LABS: Basophils % 0.6 % (0.1-2.0); Eosinophils # 0.1 K/mm3 (0.0-0.4); Eosinophils % 1.4 % (0.1-12.0); Hematocrit 34.9 % (42.0-52.0); Hemoglobin 10.7 g/dL (14.1-18.0); Lymphocytes % 23.5 % (10-50); Mean Corpuscular HGB Conc 30.7 g/dL (31.8-35.4); Mean Corpuscular Hemoglobin 25.4 pg (27.0-31.2); Mean Corpuscular Volume 82.7 fl (80-94); Mean Platelet Volume 9.9 fl (7.4-10.4); Monocytes # 0.5 K/mm3 (0.1-1.0); Monocytes % 12.1 % (1.7-9.3); Neutrophils # 2.6 K/mm3 (1.8-7.8); Neutrophils % 62.4 % (37.0-80.0); Platelet Count 129 K/mm3 (142-424); Red Blood Count 4.22 M/mm3 (4.60-6.20); Red Cell Distribution Width 18.1 % (11.5-17.5); White Blood Count 4.1 K/mm3 (4.8-10.8)
[2024-05-20 06:42] LABS: Alanine Aminotransferase 16 U/L (12-78); Albumin Level 2.8 g/dl (3.5-5.0); Alkaline Phosphatase 62 U/L (38-126); Anion Gap 5.5 mEq/L (5-15); Aspartate Amino Transferase 26 U/L (17-59); Bilirubin,Total 0.4 mg/dl (0.2-1.3); Blood Urea Nitrogen 30 mg/dl (9-20); Calcium 7.7 mg/dl (8.4-10.2); Carbon Dioxide 24 mmol/L (22.0-30.0); Chloride 107 mmol/L (98-107); Creatinine Clearance Estimated 42 mL/min (50-200); Estimated Glomerular Filt Rate 39 ml/min (>60); GFR (African American) 47 ML/MIN (>60); Globulin 2.9 g/dL (1.3-3.2); Glucose 118 mg/dl (74-100); Magnesium 2.3 mg/dl (1.6-2.3); Potassium 3.5 mmoL/L (3.5-5.1); Sodium 133 mmol/L (136-145); Total Protein,Serum 5.7 g/dl (6.3-8.2)
[2024-05-20] MEDS: AMLODIPINE 2.5 MG PO (08:33)
[2024-05-20] MEDS: OXYBUTYNIN 10 MG 1 EACH PO (08:33)
[2024-05-20] MEDS: THIAMINE 100MG TABLET 100 MG PO (08:34)
[2024-05-20] MEDS: FOLIC ACID 1MG TABLET 1 MG PO (08:34)
--- NOTE | 2024-05-20 15:02 | HMH.PTEV ---
Physical Therapy Evaluation Rehab PT IP Evaluation Start: 05/20/24 11:15 Freq: .once Status: Active Protocol: Document 05/20/24 14:16 PHORNE (Rec: 05/20/24 15:02 PHORNE [id number]) Subjective/History History History This is the initial inpatient evaluation for Luke Cerda, a 78 yom that was admitted into [facility] for sepsis and a UTI. This patient has a past medical history that includes ear canal abrasion, SNHL ( sensorineural hearing loss), tinnitus, complications affecting other specified body systems, hypertension, traumatic amputation of left arm, and hypertension. This patient has a past surgical history that includes a colonoscopy, and the patient has a history of smoking cigarettes' and drinking. Subjective Subjective The patient stated that he lives with family at this as he moved from [place] back to [place] to live with them. Patient stated that he lives with his sister and his brother in law at this time. Patient stated that he is able to don and doff clothes on his own at this time. Patient stated my socks are stretched out enough at home that I can get them on, when asked to put his socks on by rehab team . Patient also stated that he does not drive, but his sister and her family will take him to any appointments that he needs to get to. Patient stated that he uses a small based quad cane at the house at this time. Patient did state that he would like to sit in the bed side chair after evaluation was over. New diagnosis of cancer in past 12 No months? Rehab PT IP Eval Objective Appearance Patient Behavior Appropriate,Cooperative Patient Orientation Person,Place,Birthday Difficulty following instructions none Speech Pattern Clear,Appropriate Ambulation Patient Able to Ambulate Yes Ambulation Observation IP General Gait Pattern Observation Wide Based Gait Ambulation Distance (feet) 25 Ambulation Assistive Device Small Base Quad Cane Ambulation Ability Contact Guard/Hand Hold Balance Ability to Arise Able, uses arms to help Sitting Balance Steady, safe Standing Balance Steady, wide stance Dynamic Sitting Balance Ability Normal Dynamic Standing Balance Ability Normal Transfers Bed Transfer Ability Minimal x 1 (25% assist) Sit to Stand Bed Transfer Ability Contact Guard/Hand Hold Rehab PT IP prob,goals,plan Problems Date of Evaluation: 05/20/24 PT IP Problems Bed Mobility,Transfers,Gait Rehab Potential Rehab Potential Good Equipment Needs Assistive Devices None / NA Plan PT Intervention Plan Bed Mobility,Transfers,Gait, Self care,Therapeutic Exercise PT Plan Frequency Daily Duration LOS Discharge Goals Bed Transfer Ability Supervision/Stand by Sit to Stand Chair Transfer Ability Supervision/Stand by Ambulation Assistive Device Small Base Quad Cane Ambulation Distance (feet) 50 Discharge Plan PT Discharge Plan This patient is most appropriate at this time to discharge to home with home health. Skilled therapy required for strengthening, endurance, bed mobility, and gait training at this time to return the patient to their PLOF. Eval Complexity Eval Charge Codes 63998 - High Complexity PHYSICIAN CERTIFICATION: I certify the specified therapy services for Luke Cerda are required, authorized, and reviewed every 30 days.
--- NOTE | 2024-05-20 15:28 | HMH.OTEV ---
OT Inpatient Evaluation Rehab OT IP Evaluation Start: 05/20/24 11:17 Freq: ONCE Status: Active Protocol: Document 05/20/24 14:45 LACHELLEHERNANDEZ (Rec: 05/20/24 15:27 OTILIANATA [id number]) Rehab OT IP Assessment Subjective History Pt oriented x5 on arrival. Pt agreeable to engage in OT evaluation. Pt was admitted to [facility] on 05/19/24 due to shortness of air. Pt history and physical report : This is a 78-year-old male with PMHx alcohol use disorder presenting with generalized malaise and not feeling well. Patient arrives via EMS and states that he has not felt well for the past couple of days. He reports drinking a couple of beers per day but does have a history of alcohol use disorder. He notes some bodyaches, fever and chills yesterday and he did have a family reunion that he went to recently but no known specific sick contacts. He had initially complained of being short of breath but did not note this to EMS nor at present. Denies any chest pain, abdominal pain, nausea, vomiting. Admitted for further treatment and management. Subjective I'm supposed to have clothes on not this gown. Pt seen this date for initial OT evaluation. Pt is a left arm amputee and right hand dominant. Pt reports they live with their sister in her home . Prior to admission, pt was able to complete ADLs such as dressing, bathing, and toileting independently. Pt reports being able to prepare simple meals, but their sister completes IADLs of complex meal prep and cleaning for him . Pt uses a quad cane for functional mobility. Pt no longer engages in driving; sister helps with transportation. Pt sitting upright in bed on arrival. Pt engaged in bed mobility with min assist to sit at eob. While at eob, pt demonstrated good static sitting balance. Pt required total assist for donning socks . Family assist with ADL as needed. Pt then performed a sit to stand transfer with min assist x2. Pt engaged in functional mobility for ~25 feet with CGA. Pt demonstrated good activity tolerance during this task. Pt then sat down in chair with min assist. Pt was left seated in chair with call alves and all other needs in reach. Objective Patient Orientation Person,Name,Age,Birthday,Year Right Upper Extremity Gross ROM WFL Bed Mobility bed mobility - supine/sit Assist Level Minimal x 1 (25% assist) Transfer Training Sit/Stand Transfer Assist Level Contact Guard/Hand Hold Chair Transfer Ability Minimal x 1 (25% assist) Chair Transfer Technique Sit to/from Ambulatory Decrease in Endurance Yes Rehab OT IP prob,goals,plan Problems Date of Evaluation: 05/20/24 OT IP Problems Bed Mobility,Transfers,Balance ,Self care,Safety Rehab Potential Rehab Potential Good Plan OT intervention Plan Bed Mobility,Transfers,Balance ,Self care,Safety,Therapeutic Exercise OT Plan Frequency Daily Duration LOS Discharge Goals Bed Mobility Ability Assistance x1 Sit to Stand Chair Transfer Ability Contact Guard/Hand Hold Chair Transfer Ability Contact Guard/Hand Hold Chair Transfer Technique Sit to/from Ambulatory Chair Transfer Assistive Devices Large Base Quad Cane Feeding Ability Assist with Tray Set Up Lower Body Dressing Ability Moderate Assistance Upper Body Dressing Ability Minimal Assistance Performing Toilet Hygiene Ability Minimal Assistance Overall Commode/Toilet Transfer Ability Minimal Assistance Commode/Toilet Transfer Technique Sit to/from Ambulatory Commode/Toilet Transfer Assistive Grab Bars Devices Oral Care Assist Standby Assistance Discharge Plan OT Discharge Plan Pt will be seen for OT services while at [facility]. Once discharged from hospital, pt could return to living with their sister. Pt would benefit from a evaluation to support their occupational performance and safety. Continued skilled services are important to improve strength , endurance, ADL independence, safety, and functional transfers to reach PLOF. Eval Complexity Eval Charge Codes 51672 - Moderate Complexity PHYSICIAN CERTIFICATION: I certify the specified therapy services for Luke Cerda are required, authorized, and reviewed every 30 days.
--- NOTE | 2024-05-20 16:10 | CARE MANAGER ---
Addendum entered by Marbella Berg RN 05/23/24 07:33: [facility] will [facility] services later this week. Original Note: Patient is agreeable to home health services upon discharge and does not have a preference of agency. Information sent to [facility] who could not take patient, [facility] which could not take patient. The information is currently at [facility] for review.
--- NOTE | 2024-05-20 17:33 | PC.NURSE ---
Pt. d/c held until tomorrow home with h/h.
[2024-05-20] MEDS: levoFLOXacin 750 MG TABLET PO (18:27)
--- NOTE | 2024-05-20 18:43 | PEERSUPPORT ---
Peer Support Note Patient Information Patient Information: DOS: 05/19/2024 Reason: Hx with AUD PS initiated service of peer support through visit to bedside on following day of admission. Pt is receptive to peer support and agrees to support ongoing while admitted. PS visited pt sharing personal stories encouraging him to share during next visit. Pt stated he does have three children he has not spoke to in years since he [facility] out [facility], nor has he made attempts since he has moved back to [place]. He stated he is curious to how they are doing. He plans to make contact with them when he is discharged. He stated barriers that prevent him to living independently being housing, transportation, and a fixed budget. PS offers referral to [facility] to connect with resources through targeted case management as well as MAT, therapy, and support. PT agrees to accept outpatient referral and expresses gratitude for compassion shown. PS provides referral to outpatient clinic local in the area educating on the services offered such as therapy, case management in addition to many approaches to receiving the proper treatment for AUD.
--- NOTE | 2024-05-20 18:45 | P.PN_ITS ---
Subjective *Date: 05/20/24 *Time: 19:25 Interval history: Patient feeling better today. Therapy to evaluate. Initially on 2 L oxygen. Weaned to room air after morning rounds. No fever or chills. Labs showing improvement. Tolerating p.o. intake. Medical Exam Vital signs and Labs for Last 24 Hours: Vital Signs Temp Pulse Pulse Resp BP Pulse Ox O2 Del Method 05/20/24 16:29 Room Air 05/20/24 16:00 99.5 F 68 19 143/87 H 96 Room Air 05/20/24 13:41 Room Air 05/20/24 12:32 Room Air 05/20/24 12:00 70 05/20/24 12:00 100.1 F H 69 18 148/82 H 95 Room Air 05/20/24 10:17 Room Air 05/20/24 08:43 Room Air 05/20/24 08:00 80 05/20/24 08:00 98.6 F 69 18 140/71 100 Room Air 05/20/24 07:40 Room Air 05/20/24 06:53 Room Air 05/20/24 05:00 Room Air 05/20/24 04:00 98.6 F 63 16 112/54 L 95 Room Air 05/20/24 04:00 73 05/20/24 03:00 Room Air 05/20/24 01:30 99.3 F 05/20/24 01:00 Room Air 05/20/24 00:00 99.8 F H 98 H 16 146/87 H 95 Room Air 05/20/24 00:00 71 05/19/24 23:00 Room Air 05/19/24 21:00 Room Air 05/19/24 20:00 Room Air 05/19/24 20:00 68 05/19/24 20:00 99.2 F 65 14 123/63 99 Nasal Cannula O2 Flow Rate 05/20/24 16:29 05/20/24 16:00 05/20/24 13:41 05/20/24 12:32 05/20/24 12:00 05/20/24 12:00 05/20/24 10:17 05/20/24 08:43 05/20/24 08:00 05/20/24 08:00 05/20/24 07:40 05/20/24 06:53 05/20/24 05:00 05/20/24 04:00 05/20/24 04:00 05/20/24 03:00 05/20/24 01:30 05/20/24 01:00 05/20/24 00:00 05/20/24 00:00 05/19/24 23:00 05/19/24 21:00 05/19/24 20:00 05/19/24 20:00 05/19/24 20:00 2 Intake and Output 05/20/24 05/20/24 05/20/24 07:59 15:59 23:59 Intake Total 590 / 590 Output Total 500 / 1200 700 / 1200 Balance -500 / -610 -110 / -610 Intake: Intake, Oral Amount 590 / 590 Output: Output, Urine Amount 500 / 1200 700 / 1200 Other: Number of Unmeasured Voids 0 1 Weight 83.007 kg 83 kg Patient Weight 05/20/24 23:59 Weight 83 kg Laboratory Results - last 24 hr 05/18/24 21:16: Urine Color Yellow, Urine Appearance Sl cloudy, Urine pH 5.5, Ur Specific [place] 1.020, Urine Protein 1+ A, Urine Glucose (UA) Negative, Urine Ketones Trace, Urine Blood 1+ A, Urine Nitrate Positive, Urine Bilirubin Negative, Urine Urobilinogen 0.2, Ur Leukocyte Esterase 2+ A, Urine RBC 5-10, Urine WBC Tntc, Ur Squamous Epith Cells 5-10, Urine Bacteria 3+, Coarse Granular Casts 3-5 05/20/24 05:35: WBC 4.1 L D, RBC 4.22 L, Hgb 10.7 L, Hct 34.9 L, MCV 82.7, MCH 25.4 L, MCHC 30.7 L, RDW 18.1 H, Plt Count 129 L, MPV 9.9, Neut % (Auto) 62.4, Lymph % (Auto) 23.5, [place] % (Auto) 12.1 H, Eos % (Auto) 1.4, Baso % (Auto) 0.6, Neut # (Auto) 2.6, Lymph # (Auto) 1.0, [place] # (Auto) 0.5, Eos # (Auto) 0.1, Baso # (Auto) 0.0, Sodium 133 L, Potassium 3.5, Chloride 107, Carbon Dioxide 24, Anion Gap 5.5, BUN 30 H, Creatinine 1.70 H D, Estimated Creat Clear 42, Estimated GFR 39 L, Est GFR ( Amer) 47 L D, Glucose 118 H, Calcium 7.7 L, Magnesium 2.3 D, Total Bilirubin 0.4, AST 26, ALT 16, Alkaline Phosphatase 62, Total Protein 5.7 L, Albumin 2.8 L D, Globulin 2.9, Albumin/Globulin Ratio 1.0 L I & O for Labs for Last 24 Hours: Intake & Output 05/17/24 05/18/24 05/19/24 05/20/24 23:59 23:59 23:59 23:59 Intake Total 740 / 740 590 / 590 Output Total 400 / 400 1200 / 1200 Balance 340 / 340 -610 / -610 Weight 77.111 kg 80.83 kg 83 kg Microbiology Reports for the Last 24 Hours: Microbiology 05/18/24 21:15 Blood Blood Culture - Preliminary 05/18/24 21:15 Blood Blood Culture - Preliminary 05/18/24 21:16 Urine,Clean Catch Urine Culture - Preliminary Gram Negative Rods Gram Negative Rods#2 Constitutional: Present no acute distress, average body habitus, chronically ill appearing and cooperative Head: Present atraumatic and normocephalic ENT: Present normal exam Respiratory: Present normal respiratory effort; Absent rhonchi, wheezes or crackles Cardiac: Present Reg Rate and Rhythm GI: Present soft and normal bowel sounds; Absent distention or tenderness Extremities: Present normal inspection and full ROM Comment:: Absent left upper arm, previous amputation Skin: Present intact; Absent erythema Neuro: Present Grossly Intact, alert, awake, oriented x 3 and moves all extremities Assessment and Plan *Assessment and plan (1) Severe sepsis: Status: Acute Category: Medical Code(s): A41.9 - Sepsis, unspecified organism; R65.20 - Severe sepsis without septic shock (2) Aspiration pneumonia: Status: Acute Category: Medical Code(s): J69.0 - Pneumonitis due to inhalation of food and vomit (3) Alcohol use disorder, severe, dependence: Status: Acute Category: Medical Code(s): F10.20 - Alcohol dependence, uncomplicated (4) Alcohol intoxication: Status: Acute Qualifiers: Complication of substance-induced condition: uncomplicated Qualified Code(s): F10.920 - Alcohol use, unspecified with intoxication, uncomplicated Category: Medical Code(s): F10.929 - Alcohol use, unspecified with intoxication, unspecified (5) Hypertension: Status: Acute Category: Medical Code(s): I10 - Essential (primary) hypertension (6) BPH with elevated PSA: Status: Acute Category: Medical Code(s): N40.0 - Benign prostatic hyperplasia without lower urinary tract symptoms; R97.20 - Elevated prostate specific antigen [PSA] Plan This is a 78-year-old male with alcohol use disorder and intoxication who presented with fever, tachycardia, tachypnea identified left lower lobe pneumonia and lactic acidosis. Clinically improving. Symptoms effervescing. Weaning to room air today. Social determinants complicate his ability to discharge. Anticipate discharge in the morning. Problems addressed as follows: Severe sepsis, present on admission, improving Fever, tachypnea, tachycardia, lactic acidosis, source on chest x-ray White count normalized to 4.1. Blood culture positive for gram-negative rods along with urine positive for gram-negative rods Transition to levofloxacin for ease of dosing at discharge. 750 mg x 1, will dose every 48 hours if kidney function remains abnormal given creatinine clearance Aspiration pneumonia Acute hypoxic respiratory failure Pulse oximetry monitoring, wean oxygen as tolerated, on 2 L on rounds, weaning to room air today. Goal sats greater 90%. Discontinue IV Rocephin and azithromycin. Continue DuoNebs every 6 hours scheduled Alcohol use disorder severe dependence Alcohol intoxication Telemetry monitoring [facility] protocol, scores ranged from 0-7. Overall doing well. Thiamine replacement therapy Multivitamin folic acid replacement therapy Benzodiazepine therapy Parenterally administered controlled substance for comfort care Hypertension Routine blood pressure monitoring Dihydropyridine calcium channel stanislav therapy BPH with elevated PSA Obstructive uropathy Accurate I's and O's Alpha-stanislav therapy Acute kidney injury-improving. Baseline 1.3, creatinine 1.7 today. BUN 30. Repeat labs ordered for the morning with CBC, CMP, magnesium Full code
--- NOTE | 2024-05-20 20:50 | PEERSUPPORT ---
Peer Support Note Patient Information Patient Information: DOS: 05/20/2024 PS stated he was confused thinking he would be discharged from the hospital today. PS collaborated with [facility] staff clarifying for Pt he would be staying another night. Pt is accepting of this and with a positive attitude. PS explores his triggers and cravings for alcohol since being admitted. Pt stated he is managing better than what he thought he would. He can identify the times of days that he begins drinking being 3pm. He stated he drinks a few beers and a few shots of bourbon before bed for help with restlessness. PT does share that he has been doing much better since moving back to [place] from [place] by the help of his sister. 5:00 pm -PS Check in Ps assisted Pt with eating dinner while conversation of goals to set following discharge: Healthy Goals: Being mindful of drinking and effects on health Independent housing License reinstated (Contact regional office to check barriers) Seek Supportive Social groups: Reuniting with family members, support groups for men local in the community, pentec[employer] functions or groups 6:30 PM- PS-Check in PT is welcoming PS with a great attitude. He is forth coming in conversation and showing interest in continued after care through a plan of action for becoming more connected to resources for his wellbeing overall including discussing his drinking habits more openly than prior. PS assisted Pt with basic self-care face washing and applying lotion while discussing healthy habits to replace drinking habits prior to sleep to resemble affects of alcohol.
[2024-05-20] MEDS: PANTOPRAZOLE 40MG TABLET 40 MG PO (21:16)
[2024-05-20] MEDS: DOXEPIN HCL 25 MG PO (21:16)
[2024-05-20] MEDS: TAMSULOSIN 0.4MG CAPSULE 0.4 MG PO (21:18)
[2024-05-21] VITALS: BP 145/80; PULSE 68; RESP 17; TEMP 36.9; O2SAT 91
--- NOTE | 2024-05-21 00:44 | PC.NURSE ---
Report given to Kandis BLACK at 1035
[2024-05-21 04:00] VITALS: BP 132/56; PULSE 56; RESP 16; TEMP 36.9; O2SAT 97; BMI 27.2
[2024-05-21 08:00] VITALS: BP 156/78; PULSE 61; RESP 18; TEMP 36.9; O2SAT 96
[2024-05-21] MEDS: OXYBUTYNIN 10 MG 1 EACH PO (08:30)
[2024-05-21] MEDS: ENOXAPARIN 40MG/0.4ML SYRINGE 40 MG SQ (08:31)
[2024-05-21] MEDS: THIAMINE 100MG TABLET 100 MG PO (09:52)
[2024-05-21] MEDS: FOLIC ACID 1MG TABLET 1 MG PO (09:52)
[2024-05-21] MEDS: AMLODIPINE 2.5 MG PO (09:58)
[2024-05-21 10:14] LABS: Alanine Aminotransferase 16 U/L (12-78); Albumin Level 2.8 g/dl (3.5-5.0); Albumin/Globulin Ratio 0.9 (1.1-1.8); Alkaline Phosphatase 83 U/L (38-126); Aspartate Amino Transferase 30 U/L (17-59); Bilirubin,Total 0.3 mg/dl (0.2-1.3); Blood Urea Nitrogen 28 mg/dl (9-20); Calcium 7.8 mg/dl (8.4-10.2); Carbon Dioxide 25 mmol/L (22.0-30.0); Chloride 109 mmol/L (98-107); Creatinine Clearance Estimated 45 mL/min (50-200); Estimated Glomerular Filt Rate 42 ml/min (>60); GFR (African American) 51 ML/MIN (>60); Globulin 3.1 g/dL (1.3-3.2); Glucose 107 mg/dl (74-100); Sodium 137 mmol/L (136-145); Total Protein,Serum 5.9 g/dl (6.3-8.2)
--- NOTE | 2024-05-21 14:10 | P.DS_ITS ---
General Admission date:: 05/19/24 Discharge date: 05/21/24 HPI HPI HPI: This is a 78-year-old male with PMHx alcohol use disorder presenting with generalized malaise and not feeling well. Patient arrives via EMS and states that he has not felt well for the past couple of days. He reports drinking a couple of beers per day but does have a history of alcohol use disorder. He notes some bodyaches, fever and chills yesterday and he did have a family reunion that he went to recently but no known specific sick contacts. He had initially complained of being short of breath but did not note this to EMS nor at present. Denies any chest pain, abdominal pain, nausea, vomiting. Admitted for further treatment and management. Hospital Course Hospital Course Hospital Course: 78-year-old male with alcohol use disorder and intoxication who presented with fever, tachycardia, tachypnea identified left lower lobe pneumonia and lactic acidosis. Clinically improving. Symptoms deffervescing. Weaned to room air over 24 hours prior to discharge home. Stable to discharge and antibiotics to complete treatment for his infections. Problems addressed as follows: Severe sepsis, present on admission, improving Fever, tachypnea, tachycardia, lactic acidosis, source on chest x-ray. White cell count normalized by day of discharge. Blood cultures were positive for gram-negative rods along with urine positive for gram-negative rods. Transition to doxycycline to complete 7-day course of antibiotics given symptoms defervescent's. Initially was switched to Levaquin, based on sensitivities however Doxy was chosen to treat both pathogens. Patient hemodynamically stable and afebrile for over 48 hours prior to discharge. Aspiration pneumonia Acute hypoxic respiratory failure Pulse oximetry monitoring, wean oxygen as tolerated, initially on 2 L nasal cannula oxygen, weaned to room air. Has maintain sats above 90% for over 24 hours. Continue breathing treatments at discharge. Alcohol use disorder severe dependence Alcohol intoxication Telemetry monitoring. [place] protocol, scores ranged from 0-7. Overall doing well. Required no treatments during the last 24 hours of admission. Treated with multivitamins during admission. Overall doing well. Hypertension Routine blood pressure monitoring. Continue home chart amlodipine 2.5 mg daily BPH with elevated PSA Obstructive uropathy Continue tamsulosin 0.4 mg daily. Acute kidney injury-improving. Baseline 1.3, creatinine 1.6 by day of discharge. Exam Data for Last 24 hours Vital signs and Labs for Last 24 Hours: Temp Pulse Resp BP Pulse Ox O2 Del Method O2 Flow Rate 100.1 F H 69 18 148/82 H 95 Room Air 2 05/20/24 12:00 05/20/24 12:00 05/20/24 12:00 05/20/24 12:00 05/20/24 12:00 05/20/24 13:41 05/19/24 20:00 Laboratory Results - last 24 hr 05/18/24 21:16: Urine Color Yellow, Urine Appearance Sl cloudy, Urine pH 5.5, Ur Specific [place] 1.020, Urine Protein 1+ A, Urine Glucose (UA) Negative, Urine Ketones Trace, Urine Blood 1+ A, Urine Nitrate Positive, Urine Bilirubin Negative, Urine Urobilinogen 0.2, Ur Leukocyte Esterase 2+ A, Urine RBC 5-10, Urine WBC Tntc, Ur Squamous Epith Cells 5-10, Urine Bacteria 3+, Coarse Granular Casts 3-5 05/20/24 05:35: WBC 4.1 L D, RBC 4.22 L, Hgb 10.7 L, Hct 34.9 L, MCV 82.7, MCH 25.4 L, MCHC 30.7 L, RDW 18.1 H, Plt Count 129 L, MPV 9.9, Neut % (Auto) 62.4, Lymph % (Auto) 23.5, [place] % (Auto) 12.1 H, Eos % (Auto) 1.4, Baso % (Auto) 0.6, Neut # (Auto) 2.6, Lymph # (Auto) 1.0, [place] # (Auto) 0.5, Eos # (Auto) 0.1, Baso # (Auto) 0.0, Sodium 133 L, Potassium 3.5, Chloride 107, Carbon Dioxide 24, Anion Gap 5.5, BUN 30 H, Creatinine 1.70 H D, Estimated Creat Clear 42, Estimated GFR 39 L, Est GFR ( Amer) 47 L D, Glucose 118 H, Calcium 7.7 L, Magnesium 2.3 D, Total Bilirubin 0.4, AST 26, ALT 16, Alkaline Phosphatase 62, Total Protein 5.7 L, Albumin 2.8 L D, Globulin 2.9, Albumin/Globulin Ratio 1.0 L I & O for Last 24 hours: Intake & Output 05/17/24 05/18/24 05/19/24 05/20/24 23:59 23:59 23:59 23:59 Intake Total 740 / 740 250 / 250 Output Total 400 / 400 500 / 500 Balance 340 / 340 -250 / -250 Weight 77.111 kg 80.83 kg 83.007 kg Microbiology Reports for the Last 24 Hours: Microbiology 05/18/24 21:15 Blood Blood Culture - Preliminary 05/18/24 21:15 Blood Blood Culture - Preliminary 05/18/24 21:16 Urine,Clean Catch Urine Culture - Preliminary Gram Negative Rods Gram Negative Rods#2 Constitutional Constitutional: no acute distress, chronically ill appearing and cooperative *Routine HEENT Exam Head: Present normocephalic and atraumatic Eye: Present EOMI and PERRL ENT: Present mucous membranes moist *Routine Neck Exam Neck: Present supple; Absent JVD or lymphadenopathy *Routine Respiratory Exam Respiratory: Present rhonchi, normal respiratory effort and symmetric chest movement *Routine Cardiovascular Exam Cardiovascular: Present RRR *Routine Abdominal Exam Abdominal: Present soft and normoactive bowel sounds; Absent tenderness *Routine Rectal Exam Patient deferred: visual exam *Routine Exam Patient deferred: penile exam *Routine Extremities Exam Extremities: Present full ROM and pulses intact; Absent edema Comments: Previous left upper arm amputation *Routine Skin Exam Skin: Present intact; Absent rash *Routine Neurological Exam Neurological: Present alert, oriented X3, moving all extremities, vision grossly intact, hearing grossly intact and normal speech; Absent sensory deficit or motor deficit Routine Psychiatric Exam Psychiatric: Present cooperative Results Data Completed and Pending Labs on day of discharge: Labs from last 24 hours 05/20/24 05/18/24 05:35 21:16 WBC 4.1 L D RBC 4.22 L Hgb 10.7 L Hct 34.9 L MCV 82.7 MCH 25.4 L MCHC 30.7 L RDW 18.1 H Plt Count 129 L MPV 9.9 Neut % (Auto) 62.4 Lymph % (Auto) 23.5 [place] % (Auto) 12.1 H Eos % (Auto) 1.4 Baso % (Auto) 0.6 Neut # (Auto) 2.6 Lymph # (Auto) 1.0 [place] # (Auto) 0.5 Eos # (Auto) 0.1 Baso # (Auto) 0.0 Sodium 133 L Potassium 3.5 Chloride 107 Carbon Dioxide 24 Anion Gap 5.5 BUN 30 H Creatinine 1.70 H D Estimated Creat Clear 42 Estimated GFR 39 L Est GFR ( Amer) 47 L D Glucose 118 H Calcium 7.7 L Magnesium 2.3 D Total Bilirubin 0.4 AST 26 ALT 16 Alkaline Phosphatase 62 Total Protein 5.7 L Albumin 2.8 L D Globulin 2.9 Albumin/Globulin Ratio 1.0 L Urine Color Yellow Urine Appearance Sl cloudy Urine pH 5.5 Ur Specific [place] 1.020 Urine Protein 1+ A Urine Glucose (UA) Negative Urine Ketones Trace Urine Blood 1+ A Urine Nitrate Positive Urine Bilirubin Negative Urine Urobilinogen 0.2 Ur Leukocyte Esterase 2+ A Urine RBC 5-10 Urine WBC Tntc Ur Squamous Epith Cells 5-10 Urine Bacteria 3+ Coarse Granular Casts 3-5 Preliminary micro results at discharge 05/18/24 21:15 Blood Culture - Preliminary Blood 05/18/24 21:15 Blood Culture - Preliminary Blood 05/18/24 21:16 Urine Culture - Preliminary Urine,Clean Catch Gram Negative Rods Gram Negative Rods#2 DS: Diagnosis Discharge Diagnosis (1) Severe sepsis: Status: Acute Code(s): A41.9 - Sepsis, unspecified organism; R65.20 - Severe sepsis without septic shock (2) Aspiration pneumonia: Status: Acute Code(s): J69.0 - Pneumonitis due to inhalation of food and vomit (3) Alcohol use disorder, severe, dependence: Status: Acute Code(s): F10.20 - Alcohol dependence, uncomplicated (4) Alcohol intoxication: Status: Acute Code(s): F10.929 - Alcohol use, unspecified with intoxication, unspecified Qualifiers: Complication of substance-induced condition: uncomplicated Qualified Code(s): F10.920 - Alcohol use, unspecified with intoxication, uncomplicated (5) Hypertension: Status: Acute Code(s): I10 - Essential (primary) hypertension (6) BPH with elevated PSA: Status: Acute Code(s): N40.0 - Benign prostatic hyperplasia without lower urinary tract symptoms; R97.20 - Elevated prostate specific antigen [PSA] Meds Home Medications and Allergies Home Medications ?Medication ?Instructions ?Recorded ?Confirmed ?Type doxepin 25 mg capsule 25 mg PO HS sleep #30 caps 02/09/24 05/19/24 Rx oxybutynin chloride 10 mg 10 mg PO DAILY #90 tabs 03/21/24 05/19/24 Rx tablet,extended release 24 hr tamsulosin 0.4 mg capsule (Flomax) 0.4 mg PO DAILY #30 caps 03/21/24 05/19/24 Rx amlodipine 2.5 mg tablet 2.5 mg PO DAILY #30 tabs 03/28/24 05/19/24 Rx doxycycline hyclate 100 mg capsule 100 mg PO BID 5 days #10 caps 05/21/24 Rx New Prescriptions to Start Prescriptions: doxycycline hyclate Price Salcido Allergies Allergy/AdvReac Type Severity Reaction Status Date / Time No Known Allergies Allergy Unverified 05/19/24 07:14 Discharge Plan Disposition Patient Disposition: Home Health Service Condition: Fair Discharge Order Discharge Orders: Discharge Order (Routine); Ordered 05/21/24 Ordered By: Price Salcido Follow up Plan Follow up with: Calos Odom MD [Primary Care Provider] - 05/26/24 1:00 pm Prescriptions/Medication Reconciliation: New doxycycline hyclate 100 mg capsule 100 mg PO BID 5 Days Qty: 10 0RF Continued doxepin 25 mg capsule 25 mg PO HS Qty: 30 1RF oxybutynin chloride 10 mg tablet extended release 24hr 10 mg PO DAILY Qty: 90 3RF tamsulosin [Flomax] 0.4 mg capsule 0.4 mg PO DAILY Qty: 30 3RF amlodipine 2.5 mg tablet 2.5 mg PO DAILY Qty: 30 2RF Problem Reconciliation Problems Reviewed?: Yes Patient Discharge Instructions ACTIVITY: Continue current activity DIET: continue same diet Patient Instructions: DI for Pneumonia -- Adult, DI for Urinary Tract Infection (UTI), DI for Sepsis -- Adult Print Language: [place] Providers Primary Care Provider: Calos Odom Admit Provider: Aftab Hester Attending Provider: Aftab Hester
--- NOTE | 2024-05-23 04:09 | PC.NURSE ---
forwarded + BC to hospitalist as pt was admitted 05/19-05/21
--- NOTE | 2024-05-23 16:02 | CARE MANAGER ---
Patient called back and states he is doing well. He has been taking antibiotic and is aware of follow up appointment with Dr. Odom this week. SOFIA Aldana
== END 2024-05-21 16:58 | disposition home health service (06) | DRG 871 ==
LOC: ER 05-19 00:22 → 2ND 05-19 00:31
PROVIDERS: Internal Medicine Adolescent Medicine; Nurse Practitioner Family; Admitting Provider Family Medicine; Emergency Provider Emergency Medicine; PCP Family Medicine; Visit Provider Family Medicine
DX: A41.9 Sepsis, unspecified organism (principal); J69.0 Pneumonitis due to inhalation of food and vomit; J96.01 Acute respiratory failure with hypoxia; N17.9 Acute kidney failure, unspecified; N39.0 Urinary tract infection, site not specified; E87.20 Acidosis, unspecified; R65.20 Severe sepsis without septic shock; F10.20 Alcohol dependence, uncomplicated; I10 Essential (primary) hypertension; N40.0 Benign prostatic hyperplasia without lower urinary tract symptoms; F17.210 Nicotine dependence, cigarettes, uncomplicated; N32.0 Bladder-neck obstruction
CPT/HCPCS: 36415; 71046; 80053; 80307; 80320; 81001; 83605; 83735; 85007; 85025; 85027; 85610; 87040; 87077; 87086; 87088; 87186; 87636; 93005; 94640; 94761; 97163; 97166; 99285; G0480; J0456; J0696; J1630; J1650; J2060; J2405; J7030; J7050; J7120; J7620

== ENCOUNTER 2024-11-23 08:45 | Day surgery (SDC) | payer MEDICARE, SELFPAY ==
[2024-11-23] VITALS (19 sets, daily range): BP systolic 161–221; BP diastolic 69–114; PULSE 56–86; RESP 16–20; TEMP 37; O2SAT 93–100; BMI 28.0
--- NOTE | 2024-11-23 07:14 | IR_ITS ---
APPROVED REPORT Patient Location: Outpatient PROCEDURES Left heart catheterization Left ventriculogram Selective coronary angiogram INDICATION Abnormal Myoview, Preoperative evaluation, Informed consent was obtained prior to the procedure. COMPLICATIONS NONE Estimated Blood Loss: LESS THAN 10 ML TECHNIQUE One percent lidocaine was used to anesthetize the right groin. The right femoral artery was accessed via the Seldinger technique. A 4-[place] sheath was placed in the right femoral artery. The JL-4 and JR-4 catheter was also used to perform left heart catheterization left ventriculogram and selective coronary angiogram. At the end of the procedure the patient was transferred to the post-op holding area in stable condition for arterial sheath removal. ANGIOGRAPHIC RESULTS The left main artery Has a distal concentric 30% stenosis The left anterior descending artery Has proximal and mid vessel 40% calcified stenoses but is otherwise patent into the apex. A medium to large first diagonal artery is widely patent The circumflex artery Is codominant and has diffuse proximal and mid vessel 30% stenoses The right coronary artery Proximally occluded and fills via [id number] collaterals and right to right collaterals The CHAN ventriculogram reveals Normal 65% The left ventricular end-diastolic pressure Less than 10 mmHg IMPRESSION Chronically occluded right coronary artery with excellent [id number] and right to right collaterals Normal ejection fraction Normal LVEDP PLAN 1. Patient is a low and acceptable risk to proceed with hernia surgery 2. Standard therapy for ischemic heart disease 3. Risk factor modification for coronary artery disease Electronically signed by : Orlin Singh MD 11/23/2024 13:03:25
[2024-11-23 09:09] LABS: Basophils # 0.1 K/mm3 (0-0.2); Basophils % 1.4 % (0.1-2.0); Eosinophils # 0.5 K/mm3 (0.0-0.4); Eosinophils % 6.8 % (0.1-12.0); Hematocrit 48.3 % (42.0-52.0); Hemoglobin 15.5 g/dL (14.1-18.0); Lymphocytes # 3.1 K/mm3 (0.7-4.5); Lymphocytes % 38.4 % (10-50); Mean Corpuscular HGB Conc 32.1 g/dL (31.8-35.4); Mean Corpuscular Hemoglobin 27.6 pg (27.0-31.2); Mean Corpuscular Volume 86.1 fl (80-94); Mean Platelet Volume 10.1 fl (7.4-10.4); Monocytes # 1.1 K/mm3 (0.1-1.0); Monocytes % 13.2 % (1.7-9.3); Neutrophils # 3.2 K/mm3 (1.8-7.8); Neutrophils % 39.8 % (37.0-80.0); Platelet Count 223 K/mm3 (142-424); Red Blood Count 5.61 M/mm3 (4.60-6.20); Red Cell Distribution Width 15.3 % (11.5-17.5)
[2024-11-23 09:25] LABS: Chloride 103 mmol/L (98-107); Potassium 4.2 mmoL/L (3.5-5.1); Sodium 138 mmol/L (136-145)
[2024-11-23 09:28] LABS: Anion Gap 12.2 mEq/L (5-15); Blood Urea Nitrogen 23 mg/dl (9-20); Calcium 9.2 mg/dl (8.4-10.2); Carbon Dioxide 27 mmol/L (22.0-30.0); Creatinine Clearance Estimated 61 mL/min (50-200); Estimated Glomerular Filt Rate 58 ml/min (>60); GFR (African American) 71 ML/MIN (>60); Glucose 102 mg/dl (74-100)
[2024-11-23] MEDS: LIDOCAINE 1% 10ML MDV 20 ML IJ (12:05)
[2024-11-23] MEDS: diphenhydrAMINE 50MG/ML VIAL 50 MG IV (12:05)
[2024-11-23] MEDS: 0.9 % SODIUM CHLORIDE 500 ML 25 ML IV (12:06)
[2024-11-23] MEDS: HEPARIN 1,000 UNITS/500ML NS (CATH LAB) 3000 UNIT IV (12:06)
[2024-11-23] MEDS: FENTANYL 100MCG/2ML VIAL 50 MCG IV (12:41)
[2024-11-23] MEDS: MIDAZOLAM HCL 1MG/ML 5ML VIAL 1 MG IV (12:41)
[2024-11-23] MEDS: IOPAMIDOL-370 (76%);100ML BOTTLE 50 ML IV (13:49)
[2024-11-23] MEDS: HYDRALAZINE 20MG/ML VIAL 20 MG IV (15:08)
--- NOTE | 2024-11-23 15:33 | ECG_ITS ---
APPROVED REPORT Exam: Resting ECG HR:93 bpm ECG Measurements Heart Rate 93 AXES QRSd 96 QRS 3 QT 384 T 123 QTc [address] DEVIATION AND MODERATE T-WAVE ABNORMALITY, CONSIDER LATERAL ISCHEMIA [-0.1+ mV T-WAVE IN I/aVL/V5/V6] ABNORMAL ECG UNCONFIRMED REPORT Electronically signed by : Eugene Mcneil MD 11/25/2024 08:52:16
== END 2024-11-23 16:06 | disposition home or self-care (01) ==
PROVIDERS: PCP Family Medicine; Visit Provider Internal Medicine
DX: I25.10 Atherosclerotic heart disease of native coronary artery without angina pectoris (principal); R94.39 Abnormal result of other cardiovascular function study; I10 Essential (primary) hypertension; E78.5 Hyperlipidemia, unspecified; J44.9 Chronic obstructive pulmonary disease, unspecified; F17.210 Nicotine dependence, cigarettes, uncomplicated; I35.0 Nonrheumatic aortic (valve) stenosis; F10.20 Alcohol dependence, uncomplicated; Z79.899 Other long term (current) drug therapy
CPT/HCPCS: 80048; 85025; 93005; 93458; 99152; C1725; C1769; J0360; J1200; J1644; J3010; Q9967

== ENCOUNTER 2024-11-30 11:27 | Outpatient (CLI) | payer MEDICARE, SELFPAY ==
[2024-11-30 11:48] LABS: Basophils # 0.1 K/mm3 (0-0.2); Eosinophils # 0.3 K/mm3 (0.0-0.4); Eosinophils % 3.4 % (0.1-12.0); Hemoglobin 15.1 g/dL (14.1-18.0); Lymphocytes # 2.7 K/mm3 (0.7-4.5); Lymphocytes % 27.5 % (10-50); Mean Corpuscular HGB Conc 32.1 g/dL (31.8-35.4); Mean Corpuscular Hemoglobin 27.8 pg (27.0-31.2); Mean Corpuscular Volume 86.4 fl (80-94); Mean Platelet Volume 9.9 fl (7.4-10.4); Monocytes # 1.1 K/mm3 (0.1-1.0); Monocytes % 11.2 % (1.7-9.3); Neutrophils # 5.6 K/mm3 (1.8-7.8); Neutrophils % 56.5 % (37.0-80.0); Platelet Count 231 K/mm3 (142-424); Red Blood Count 5.44 M/mm3 (4.60-6.20); Red Cell Distribution Width 15.7 % (11.5-17.5)
[2024-11-30 12:22] LABS: Alanine Aminotransferase 19 U/L (12-78); Albumin Level 4.6 g/dl (3.5-5.0); Alkaline Phosphatase 53 U/L (38-126); Anion Gap 20.3 mEq/L (5-15); Aspartate Amino Transferase 22 U/L (17-59); Bilirubin,Direct 0.4 mg/dl (0.0-0.4); Bilirubin,Indirect 0.5 mg/dL (0.0-0.9); Bilirubin,Total 0.9 mg/dl (0.2-1.3); Bilirubin,Unconjugated 0.5 mg/dL (0.0-1.1); Blood Urea Nitrogen 21 mg/dl (9-20); Calcium 9.7 mg/dl (8.4-10.2); Carbon Dioxide 17 mmol/L (22.0-30.0); Chloride 101 mmol/L (98-107); Chol/HDL Ratio 2.9 (1-3.5); Cholesterol 231 mg/dl (140-200); Estimated Glomerular Filt Rate 49 ml/min (>60); GFR (African American) 59 ML/MIN (>60); Glucose 97 mg/dl (74-100); HDL Cholesterol 81 mg/dl (40-60); Potassium 4.3 mmoL/L (3.5-5.1); Sodium 134 mmol/L (136-145); Total Protein,Serum 7.5 g/dl (6.3-8.2); Triglycerides 82 mg/dl (30-150); VLDL Cholesterol 16 mg/dL (0-40)
[2024-11-30 12:33] LABS: Direct LDL Cholesterol 119.24 mg/dL (100-129)
[2024-11-30 12:39] LABS: Free T4 (Free Thyroxine) 1.21 ng/dl (0.78-2.19)
== END 2024-11-30 23:59 | disposition home or self-care (01) ==
LOC: LAB 11:28
PROVIDERS: PCP Family Medicine; Visit Provider Nurse Practitioner Family
DX: I25.10 Atherosclerotic heart disease of native coronary artery without angina pectoris (principal); I10 Essential (primary) hypertension; E78.5 Hyperlipidemia, unspecified
CPT/HCPCS: 36415; 80048; 80061; 80076; 84439; 84443; 85025

== ENCOUNTER 2024-12-21 12:04 | Outpatient (CLI) | payer MEDICARE, SELFPAY ==
[2024-12-21 12:38] LABS: Microscopic, Urine URINE MICROSCOPIC (MICROSCOPIC)
[2024-12-21 12:45] LABS: Appearance,Urine CLEAR (Clear); Bilirubin,Urine Negative (Negative); Blood, Urine Negative (Negative); Color,Urine YELLOW (Yellow); Glucose,Urine (UA) Negative (Negative); Ketones,Urine Negative (Negative); Leukocyte Esterase,Urine TRACE (Negative); Nitrate,Urine Negative (Negative); PH,Urine 5.5 (5.0-8.5); Protein,Urine TRACE (Negative); Specific Gravity, Urine 1.025 (1.005-1.030); Urobilinogen,Urine 0.2 EU/dl (0.2)
[2024-12-21 12:52] LABS: Bacteria,Urine Trace /lpf; RBC,Urine Occasional #/hpf (0-3); Squamous Epithelial Cell,Urine Occasional #/hpf (0-5); WBC,Urine Occasional #/hpf (0-3)
== END 2024-12-21 23:59 | disposition home or self-care (01) ==
LOC: PREOP 12:05
PROVIDERS: PCP Family Medicine; Visit Provider Surgery
DX: N39.0 Urinary tract infection, site not specified (principal)
CPT/HCPCS: 81001

== ENCOUNTER 2024-12-29 06:56 | Day surgery (SDC) | payer MEDICARE, SELFPAY ==
[2024-12-22 09:04] VITALS: BMI 27.3
[2024-12-29] VITALS (11 sets, daily range): BP systolic 128–168; BP diastolic 60–89; PULSE 60–88; RESP 14–18; TEMP 36.4–38; O2SAT 90–95
--- NOTE | 2024-12-29 08:02 | EXP.ANES.CKL ---
[facility] Disclaimer: The information contained in this section may have been updated after the patient was seen, as this information can be updated by other users. Medical History Hyponatremia Alcoholism Smoker COPD (chronic obstructive pulmonary disease) with emphysema Aortic stenosis Hyperlipidemia CAD in [place] artery Ear canal abrasion SNHL (sensorineural hearing loss) Tinnitus Complications affecting other specified body systems, hypertension Traumatic amputation of left arm Hypertension Surgical History History of surgery S/P cardiac cath H/O colonoscopy Family History Other Cancer Hypertension Social History Smoking Status: Current every day smoker tobacco type: cigarettes alcohol intake: never substance use type: denies use current occupational status: retired Travel in the last 8 weeks: Inside the [facility] Anesthesia Checklist Patient Identification Patient Identification: Arm Band and Verbal (Name & ) Structural Data Admitted From: Home Planned Operative Procedure/s: open right inguinal hernia repair Consent for Planned Operative Procedure(s) Verified: Yes Verified Documents: Surgical Consent NPO Status Verified Time NPO: 00:00 Chart Verification Results Verified: CBC, BMP and ECG Additional verifications Anesthesia Reactions: No Hx Blood Transfusions: No Blood Transfusion Reaction: No Cephalosporin Allergy: No Airway Assessment Mallampati Score:: Class II C-Spine Mobility Assessed: Yes Dentition: Good Dentition Neurological Assessment Level of Consciousness: Awake, Alert and Appropriate Hx Seizures: No Numbness or tingling in extremities: No Anesthesia Plan Anesthesia Risk discussed: Yes Anesthesia Plan: Verified ASA Class: III Anesthesia Type: General
[2024-12-29] MEDS: CEFAZOLIN SODIUM 2 GM in 0.9 % SODIUM CHLORIDE 100 ML IV (09:45)
--- NOTE | 2024-12-29 09:52 | SW/DCPLANNER ---
Patient's family expressed an interest in home health services. Per outpatient nursing staff patient will not require dressing changes. Surgery staff will contact me after procedure if patient has any needs.
[2024-12-29] MEDS: LIDOCAINE 1% 20ML MDV 20 ML (10:18)
--- NOTE | 2024-12-29 11:47 | P.OP_ITS ---
Date of procedure: 12/29/24 Pre-op Diagnosis:: Right inguinal hernia (scrotal hernia) with chronically-incarcerated bowel Post-op Diagnosis:: Same Procedure performed:: Open right inguinal hernia repair Right orchiectomy Surgeon:: Jamaal Quinonez MD MEDICAL SUPPORT ASSISTANT:: Ravi Gutierrez Anesthesia: local and LMA Estimated blood loss (mL): 15 Operative findings:: Massive scrotal hernia with chronically-incarcerated colon and small bowel Severe chronic inflammatory changes/adhesions throughout inguinal canal and scrotum Vas deferens and vasculature densely adhered to hernia sac Orchiectomy completed secondary to concerns for likely testicular ischemia Massive pantaloon defect 8 cm Ventralex mesh utilized for repair Operative note:: After informed consent was obtained the patient was taken to the operating room and placed in the supine position. General anesthesia was induced and his abdomen and groin/scrotum were prepped and draped in a sterile fashion. After infiltration with local anesthetic an oblique right groin incision was made. A combination of blunt dissection and electrocautery was utilized to transect through Danielle's fascia to the level of the external aponeurosis. The external ring was no longer intact as chronically-incarcerated hernia contents were protruding into the scrotum with concomitant massive hernia sac . The hernia sac with chronically-incarcerated bowel was carefully elevated and a combination of electrocautery and blunt dissection was utilized to free it from surrounding tissue. A large pantaloon defect was encountered. No obvious injury to the bowel was noted. The incarcerated contents were carefully returned to the abdominal cavity. Due to severe adhesions throughout the region, the blood supply to/from the testicle was felt to be likely compromised. Therefore, the decision was made to proceed with orchiectomy (deemed unavoidable secondary to likely testicular ischemia). As the testicle was carefully elevated it was dissected free from surrounding tissue utilizing electrocautery. The testicle was passed off for pathologic evaluation. The above-stated defect was closed by placement of an 8 cm Ventralex mesh. The edge of the Ventralex manage was approximated to the surrounding fascial margin with interrupted 0 Ethibond. Remaining external aponeurosis was reapproximated with interrupted 0 Ethibond. The deep subcutaneous tissue/Danielle's fascia was reapproximated in 2 layers with running Vicryl suture. Skin was then closed with the INSORB stapling device. Dressings were applied and the patient was transferred to recovery in stable condition. Condition: stable Disposition: PACU Specimens:: Right testicle Complications:: No immediate with the exception of the need for orchiectomy secondary to likely testicular ischemia
[2024-12-29] MEDS: ALBUTEROL 0.083% 2.5 MG/3 ML NEB IH (11:55)
--- NOTE | 2024-12-29 11:58 | EXP.ANES.I ---
[facility] Anesthesia Record Part I Anesthesia Record I Intake, IV Amount: 1,800 Hydration: Adequate Estimated blood loss (mL): 20 Urine output (mL): 50 Blood Pressure: 131/60 SaO2: 90 (breathing treatment per resp.) Pulse Rate: 83 Airway Patency: Patent Respiratory Rate: 14 Temperature: 98 F Patient is:: Awake and Stable Stable to PACU at:: 11:50
[2024-12-29] MEDS: MORPHINE 2MG/ML SYRINGE 2 MG IV ×2 (12:13→12:18)
[2024-12-29] MEDS: HYDROCODONE/APAP 5/325 MG TABLET 1 TAB PO (13:00)
--- NOTE | 2024-12-29 16:09 | EXP.ANES.II ---
[facility] Anesthesia Record Part II Anesthesia Record Part II Discharge Time: 12:20 Destination: Surgical Day Care (OP Surgery) PACU nurse assessment reviewed?: Yes Patient Condition:: Fair Anesthesia Complications:: None Swallowing reflex intact?: Yes Airway Patency: Patent Cyanosis?: No Blood Pressure: 148/74 SaO2: 94 Respiratory Rate: 18 Pulse Rate: 75 Temperature: 97.5 F Mental Status: Alert & Oriented Pain level:: 5 Nausea and/or vomitting:: None Intake, IV Amount: 0 Hydration: Adequate
== END 2024-12-29 13:05 | disposition home or self-care (01) ==
PROVIDERS: PCP Family Medicine; Visit Provider Surgery
PROC: (CPT 49507; principal; 2024-12-29 09:10)
DX: K40.30 Unilateral inguinal hernia, with obstruction, without gangrene, not specified as recurrent (principal)
CPT/HCPCS: 49507; 54520; 94640; 96374; C1781; J0690; J1100; J2250; J2270; J2405; J3010; J7120; J7613

== ENCOUNTER 2025-02-04 14:41 | Emergency (ER) | payer MEDICARE, SELFPAY ==
[2025-02-04] VITALS (7 sets, daily range): BP systolic 118–152; BP diastolic 61–71; PULSE 62–71; RESP 15–19; TEMP 36.6; O2SAT 93–97; BMI 27.3
--- NOTE | 2025-02-04 14:42 | CT_ITS ---
PROCEDURE INFORMATION: Exam: CTA Head With Contrast, Arteriography Exam date and time: 02/04/2025 2:47 PM Age: 79 years old Clinical indication: Stroke-like symptoms; Speech disturbance; Additional info: Possible stroke, slurred speech R facial droop TECHNIQUE: Imaging protocol: Computed tomographic angiography of the head with contrast. Exam focused on the arteries. 3D rendering (Not supervised by radiologist): MIP and/or 3D reconstructed images were created by the technologist. Radiation optimization: All CT scans at this facility use at least one of these dose optimization techniques: automated exposure control; mA and/or kV adjustment per patient size (includes targeted exams where dose is matched to clinical indication); or iterative reconstruction. Contrast material: ISOVUE; Contrast volume: 80 ml; Contrast route: INTRAVENOUS (IV); COMPARISON: CT HEAD/BRAIN WO CON 02/04/2025 2:45 PM FINDINGS: ANTERIOR CIRCULATION: Right internal carotid artery: Intracranial segment is patent with no significant stenosis. No aneurysm. Right middle cerebral artery: No occlusion or significant stenosis. No aneurysm. Right anterior cerebral artery: No occlusion or significant stenosis. No aneurysm. Left internal carotid artery: Intracranial segment is patent with no significant stenosis. No aneurysm. Left middle cerebral artery: No occlusion or significant stenosis. No aneurysm. Left anterior cerebral artery: No occlusion or significant stenosis. No aneurysm. POSTERIOR CIRCULATION: Right vertebral artery: No occlusion or significant stenosis. No aneurysm. Left vertebral artery: No occlusion or significant stenosis. No aneurysm. Basilar artery: No occlusion or significant stenosis. No aneurysm. Right posterior cerebral artery: No occlusion or significant stenosis. No aneurysm. Left posterior cerebral artery: No occlusion or significant stenosis. No aneurysm. Brain: No definite mass, mass effect, or midline shift. White matter microvascular disease and cerebral atrophy. Cerebral ventricles: No ventriculomegaly. Bones/joints: No acute fracture or focal bone lesions. Soft tissues: No masses or swelling. IMPRESSION: No large vessel occlusion. No acute intracranial abnormalities.
--- NOTE | 2025-02-04 14:42 | CT_ITS ---
PROCEDURE INFORMATION: Exam: CTA Neck With Contrast Exam date and time: 02/04/2025 2:47 PM Age: 79 years old Clinical indication: Stroke-like symptoms; Speech disturbance; Additional info: Possible stroke, slurred speech R facial droop TECHNIQUE: Imaging protocol: Computed tomographic angiography of the neck with contrast. Exam focused on the cervical segments of the vasculature. 3D rendering (Not supervised by radiologist): MIP and/or 3D reconstructed images were created by the technologist. Radiation optimization: All CT scans at this facility use at least one of these dose optimization techniques: automated exposure control; mA and/or kV adjustment per patient size (includes targeted exams where dose is matched to clinical indication); or iterative reconstruction. Contrast material: ISOVUE; Contrast volume: 80 ml; Contrast route: INTRAVENOUS (IV); COMPARISON: CT HEAD/BRAIN WO CON 02/04/2025 2:45 PM FINDINGS: Right common carotid artery: No stenosis. No dissection or occlusion. Right internal carotid artery: No significant stenosis of the extracranial segment. No dissection or occlusion. Calcified plaque causes less than 50% stenosis. Right external carotid artery: No occlusion or stenosis of the origin. Left common carotid artery: No stenosis. No dissection or occlusion. Left internal carotid artery: No significant stenosis of the extracranial segment. No dissection or occlusion. Calcified plaque causes less than 50% stenosis. Left external carotid artery: No occlusion or stenosis of the origin. Right vertebral artery: No stenosis. No dissection or occlusion. Very small but patent Left vertebral artery: Calcified plaque in the V4 segment causes less than 50% stenosis. No dissection or occlusion. Dominant. Soft tissues: No masses or edema. Bones/joints: No acute fracture, subluxations, or bone lesions. IMPRESSION: No arterial stenosis or occlusion in the neck. REFERENCES: NASCET CRITERIA. The degree of stenosis in the cervical segment of the internal carotid artery is based on NASCET criteria. Normal is no stenosis. Mild is less than 50% stenosis. Moderate is 50-69% stenosis. Severe is 70% to 99% stenosis. Total occlusion is no detectable patent lumen.
--- NOTE | 2025-02-04 14:42 | CT_ITS ---
PROCEDURE INFORMATION: Exam: CT Head Without Contrast Exam date and time: 02/04/2025 2:45 PM Age: 79 years old Clinical indication: Stroke-like symptoms; Speech disturbance; Additional info: Possible stroke, slurred speech R facial droop TECHNIQUE: Imaging protocol: Computed tomography of the head without contrast. Radiation optimization: All CT scans at this facility use at least one of these dose optimization techniques: automated exposure control; mA and/or kV adjustment per patient size (includes targeted exams where dose is matched to clinical indication); or iterative reconstruction. Other technique: STROKE PROTOCOL was implemented. COMPARISON: No relevant prior studies available. FINDINGS: Brain: No hemorrhage. Extensive low density in the white matter both cerebral hemispheres without mass effect. No other intra-axial or extra-axial lesions or masses. No midline shift. Cerebral ventricles: Ventricular systems are moderately prominent. Paranasal sinuses: Visualized sinuses are well aerated. No fluid levels. Mastoid air cells: Visualized mastoid air cells are well aerated. Bones: No acute fracture or bone lesions. Soft tissues: No abnormalities. IMPRESSION: 1. No acute intracranial abnormality. 2. Cerebral atrophy and extensive white matter microvascular disease. ASSESSMENT: ASPECTS ([place] Stroke Program Early CT Score) is 10.
--- NOTE | 2025-02-04 14:42 | ECG_ITS ---
APPROVED REPORT Exam: Resting ECG HR:67 bpm ECG Measurements Heart Rate 67 AXES IN 175 P 74 QRSd 101 QRS 32 QT 434 T 122 QTc [address] DEVIATION AND MODERATE T-WAVE ABNORMALITY, CONSIDER LATERAL ISCHEMIA [-0.1+ mV T-WAVE IN I/aVL/V5/V6] No STEMI Electronically signed by : ALINE MONET, 02/05/2025 03:05:44
--- NOTE | 2025-02-04 14:48 | ED_ITS ---
Discharge Plan Disposition Patient Disposition: Home, Self-Care Prescriptions Prescriptions: No Action albuterol sulfate 90 mcg/actuation HFA aerosol inhaler 1 inh inhalation QID PRN (Reason: shortness of breath or wheezing) Qty: 6.7 0RF rosuvastatin 10 mg tablet 10 mg PO DAILY Qty: 90 3RF aspirin [Adult Aspirin Regimen] 81 mg tablet,delayed release (DR/EC) 81 mg PO DAILY Qty: 30 2RF amlodipine 5 mg tablet 5 mg PO DAILY Patient Comments: TAKE 1 TABLET 1 TIME EACH DAY doxepin 25 mg capsule 25 mg PO HS Qty: 30 1RF oxybutynin chloride 10 mg tablet extended release 24hr 10 mg PO DAILY Qty: 90 3RF tamsulosin [Flomax] 0.4 mg capsule 0.4 mg PO DAILY Qty: 30 3RF bisoprolol fumarate 5 mg Tablet 5 mg PO DAILY Qty: 30 3RF nifedipine 60 mg Tablet Extended Release 60 mg PO DAILY Qty: 30 3RF hydrocodone-acetaminophen 5-325 mg tablet 1 tab PO Q6H PRN (Reason: post-op pain) Qty: 17 0RF Referrals Follow up/Referrals: Provider,Referral, MD [Primary Care Provider, Medical] - See instructions Clinical Impressions Clinical Impression: Acute CVA (cerebrovascular accident) Print Language Print Language: Egyptian Discharge ED Provider: Koko Monsalve General Adult HPI General Chief complaint: Neuro Symptoms/Deficit Stated complaint: stroke Time Seen by Provider: 02/04/25 14:42 History of Present Illness HPI narrative: Patient is 79-year-old male with past medical history of COPD, alcoholism, chronic smoker, hyperlipidemia who presents to the emergency department for evaluation of strokelike symptoms. Onset was acute at approximately 2:10 PM patient began slurring his speech and having weakness to the point where he was unable to get out of a car. 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 No trauma. No other acute complaints at this time. Please note that above description of symptoms, in this electronic medical record under categorization of recalled from ER triage doctor by RN are reflective of an initial nursing assessment, however, is not reflective of my full history and physical exam that was personally taken and clarified. Consequentially, this preceding description of symptoms, which may include the patient's categorized chief complaint in the EMR, do not reflect my personal clinical impression, and the ultimate description of history of present illness and patient stated complaints should be deferred to this section of the note. Unless stated otherwise or congruent with this section of the note, additional signs, symptoms, or incongruence should be interpreted as inaccurate with my clinical impression. Related Data Home Medications ?Medication ?Instructions ?Recorded ?Confirmed amlodipine 5 mg tablet 5 mg PO DAILY 12/07/2401/04 Previous Rx's ?Medication ?Instructions ?Recorded doxepin 25 mg capsule 25 mg PO HS sleep #30 caps 0 02/09/24 oxybutynin chloride 10 mg 10 mg PO DAILY #90 tabs 03/07 01/28 tablet,extended release 24 hr tamsulosin 0.4 mg capsule (Flomax) 0.4 mg PO DAILY #30 caps 03/21/24 albuterol sulfate 90 mcg/actuation 1 inh inhalation QI D PRN shortness 08/26/24 aerosol inhaler of breath or wheezing #6.7 g isiah bisoprolol fumarate 5 mg tablet 5 mg PO DAILY #30 tabs 11/23/24 nifedipine 60 mg tablet,extended 60 mg PO DAILY #30 ta bs 11/23/24 release aspirin 81 mg tablet,delayed 81 mg PO DAILY #30 tabs 0 11/30/24 release (Adult Aspirin Regimen) rosuvastatin 10 mg tablet 10 mg PO DAILY #90 tabs 11/06 03/01 hydrocodone 5 mg-acetaminophen 325 1 tab PO Q6H PRN po st-op pain #17 12/29/24 mg tablet tabs Allergies Allergy/AdvReac Type Severity Reaction Status Date / Time No Known Allergies Allergy Verified 01/04/25 14:20 [facility] Disclaimer: The information contained in this section may have been updated after the patient was seen, as this information can be updated by other users. Medical History (Updated 02/04/25 @ 15:30 by Koko Monsalve MD) Hyponatremia Alcoholism Smoker COPD (chronic obstructive pulmonary disease) with emphysema Aortic stenosis Hyperlipidemia CAD in [place] artery Ear canal abrasion SNHL (sensorineural hearing loss) Tinnitus Complications affecting other specified body systems, hypertension Traumatic amputation of left arm Hypertension Surgical History (Updated 01/04/25 @ 15:16 by Jamaal Quinonez MD) H/O unilateral orchiectomy H/O right inguinal hernia repair History of surgery S/P cardiac cath H/O colonoscopy Family History Other Cancer Hypertension Social History Smoking Status: Current every day smoker tobacco type: cigarettes alcohol intake: never substance use type: denies use current occupational status: retired Travel in the last 8 weeks?: Inside the [place] Have you lived/traveled outside US in past 30 days?: No Contact w/someone who lives/traveled outside US past 30 days?: No Exposure to someone with infectious disease in past 14 days?: No Do you have a fever (greater than 100.4 F or 38 C)?: No Have you tested positive for COVID-19?: No Exposed to someone with COVID-19 in past 14 days?: No Do you have a sore throat?: No Do you have a cough?: No Do you have any weakness?: No Do you have any diarrhea?: No Are you experiencing any unusual bleeding?: No Do you have any muscle aches/pain?: No Do you have any abdominal pain?: No Are you experiencing loss of taste or smell?: No Other Medical History Have you received the Flu Vaccine for this season: No Have you received the Pneumonia Vaccine: No ROS Obtained: Yes Systems reviewed as appropriate & no additional complaints except as documented Physical Exam General General appearance: alert Head Head exam: atraumatic and normocephalic Eye Eye exam: Present PERRL and EOMI ENT ENT exam: Present mucous membranes moist Neck Neck exam: Present normal inspection Chest Chest inspection: Present normal inspection and symmetric chest wall rise Respiratory Respiratory exam: Present normal lung sounds bilaterally; Absent respiratory distress Cardiovascular Cardiovascular exam: Present regular rate and normal rhythm Abdominal Exam Abdominal exam: Present soft; Absent tenderness Extremities Exam Extremities exam: Present other (Left upper extremity amputation.) Neurological Exam Neurological exam: Present alert and other (Right facial droop and slurring speech on initial evaluation); Absent CN II-XII intact Psychiatric Psychiatric exam: Present normal affect Skin Skin exam: Present warm and dry Medical Decision Making Medical Records Screening: Per USPSTF and CDC recommendations, given the prevalence of disease in our region, it is our hospital?s policy to screen for HIV and viral Hepatitis for all patients aged 18 and over and those with ongoing risk factors. Osmin Inquiry Pt receiving controlled substance: No Vital Signs: 02/04/25 15:05 Temperature 97.9 F Temperature Source Oral Pulse Rate [Right] 65 Respiratory Rate 16 Blood Pressure [Right Arm] 118/70 Blood Pressure Mean [Right Arm] 86 Blood Pressure Source [Right Arm] Automatic Cuff Blood Pressure Position [Right Arm] Sitting 02 Sat by Pulse Oximetry 96 Oxygen Delivery Method Room Air Lab Data Lab Results 02/04/25 14:44: WBC 9.0, RBC 5.60, Hgb 15.9, Hct 49.3, MCV 88.0, MCH 28.4, MCHC 32.3, RDW 14.5, Plt Count 174, MPV 10.1, Neut % (Auto) 56.2, Lymph % (Auto) 28.0, [place] % (Auto) 10.0 H, Eos % (Auto) 4.7, Baso % (Auto) 0.8, Neut # (Auto) 5.1, Lymph # (Auto) 2.5, [place] # (Auto) 0.9, Eos # (Auto) 0.4, Baso # (Auto) 0.1, PT 10.9, INR 0.98, APTT 26.5, Sodium 143, Potassium 3.7, Chloride 108 H, Carbon Dioxide 25, Anion Gap 13.7, BUN 20, Creatinine 1.20, Estimated GFR 58 L, Est GFR ( Amer) 71, Glucose 171 H, Calcium 9.7, Total Bilirubin 0.8, AST 34, ALT 24, Alkaline Phosphatase 72, Troponin I 0.05 H, Total Protein 8.1, Albumin 4.6, Globulin 3.5 H, Albumin/Globulin Ratio 1.3, Triglycerides 119, Cholesterol 211 H , LDL Cholesterol Direct 102.21, VLDL Cholesterol 24, HDL Cholesterol 70 H, Cholesterol/HDL Ratio 3.0, Plasma/Serum Alcohol < 10 02/04/25 14:44 02/04/25 14:44 Orders (Tests/Meds): ED MEDICATIONS Generic Name Dose Route Start Last Admin Trade Name Freq PRN Reason Stop Dose Admin Sodium Chloride 10 ml 02/04/25 14:42 Sodium Chloride 0.9% 10ml Flush Syringe IV 03/06/25 14:41 NEEDED PRN Maintain IV Site Discontinued Medications Generic Name Dose Route Start Last Admin Trade Name Freq PRN Reason Stop Dose Admin Iopamidol 80 ml 02/04/25 14:51 02/04/25 14:52 Iopamidol-370 (76%);100ml Bottle IV 02/04/25 14:52 80 ml ONCE ONE Administration Sodium Chloride 10 ml 02/04/25 14:51 02/04/25 14:52 Sodium Chloride 0.9% 10ml Syr (Rad Only) IV 02/04/25 14:52 10 ml ONCE ONE Administration Sodium Chloride 50 ml 02/04/25 14:51 02/04/25 14:52 0.9 % Sodium Chloride 50 Ml Vial IV 02/04/25 14:52 50 ml ONCE ONE Administration ORDERS Category Date Time Status CT angio head Stat Cat Scan 02/04/25 14:[address] angio neck Stat Cat Scan 02/04/25 14:[address] head/brain wo con Stat Cat Scan 02/04/25 14:42 Completed Activated Partial Thrombo Time Stat Lab 02/04/25 14:44 Completed Complete Blood Count Auto Diff Stat Lab 02/04/25 14:44 Completed Comprehensive Metabolic Panel Stat Lab 02/04/25 14:44 Completed Drug Screen,Urine Stat Lab 02/04/25 14:42 Ordered Ethyl Alcohol Stat Lab 02/04/25 14:44 Completed HIV Combo Stat Lab 02/04/25 15:13 Ordered Hepatitis C Ab Qual. W/ RFX Stat Lab 02/04/25 15:13 Ordered INR [Prothrombin Time INR] Stat Lab 02/04/25 15:18 Ordered Lipid Panel Stat Lab 02/04/25 14:44 Completed Prothrombin Time INR Stat Lab 02/04/25 14:44 Completed Troponin I Q3H Lab 02/04/25 17:45 Ordered Troponin I Q3H Lab 02/04/25 20:45 Ordered Troponin I Stat Lab 02/04/25 14:44 Completed Urinalysis and Microscopic Stat Lab 02/04/25 14:42 Ordered ECG Data Tracing #1: Independently interpreted by me rate of 67, rhythm is regular, axis is normal, no ST elevation in anatomical contiguous leads, QTc 449. Medical Decision Narrative: In summary patient is a 79-year-old male past medical history described above who presents emergency department for evaluation of strokelike symptoms. Last known normal 2:10 PM. Patient undergo rapid stroke protocol given my concern for CVA is high with right facial droop and slurred speech upon arrival. After CT imaging full NIH will be obtained. I had interactive discussion with radiology regarding CT imaging. Patient has no arterial stenosis or occlusion in the neck. No large vessel occlusion intracranially no acute intracranial abnormalities. Noncontrasted CT scan of the head informally visualized by me no large acute intra-axial hemorrhage. Formal read shows no acute intracranial abnormality with cerebral atrophy and extensive white matter microvascular disease. NIH is for scoring for partial hemianopia on the left, minor paralysis on the right, mild aphasia and moderate dysarthria. Interestingly patient states that recently he felt the vision in his left eye completely go out as if a curtain fell over his sometime last week but had complete resolution of symptoms after 30 minutes. Given that patient is a TNK candidate he does not have any contraindications after I went over the IV thrombolytic eligibility list. I discussed case with [facility] who agrees that if patient feels that his disabling he is a candidate for TNK. Given this patient was administered TNK and was transported to [facility] in stable condition for continued evaluation and care. Critical Care Critical Care Time Critical Care Time: Yes Attestation: On 02/04/25, the high probability of a clinically significant, sudden or life threatening deterioration of the following system(s) required my full and direct attention, intervention and personal management. The time I documented below is in addition to time spent performing reported procedures but includes the following listed in this critical care notation. Total Time Total Critical Care Time: 40
[2025-02-04] MEDS: IOPAMIDOL-370 (76%);100ML BOTTLE 80 ML IV (14:52)
[2025-02-04] MEDS: 0.9 % SODIUM CHLORIDE 50 ML VIAL IV (14:52)
[2025-02-04] MEDS: SODIUM CHLORIDE 0.9% 10ML SYR (RAD ONLY) 10 ML IV (14:52)
[2025-02-04 14:55] LABS: Basophils # 0.1 K/mm3 (0-0.2); Basophils % 0.8 % (0.1-2.0); Eosinophils # 0.4 Kmm3 (0.0-0.4); Eosinophils % 4.7 % (0.1-12.0); Hematocrit 49.3 % (42.0-52.0); Hemoglobin 15.9 g/dL (14.1-18.0); Immature Granulocytes # 0.03 10^3uL; Immature Granulocytes % 0.3 %; Lymphocytes # 2.5 K/mm3 (0.7-4.5); Mean Corpuscular HGB Conc 32.3 g/dL (31.8-35.4); Mean Corpuscular Hemoglobin 28.4 pg (27.0-31.2); Mean Platelet Volume 10.1 fl (7.4-10.4); Monocytes # 0.9 K/mm3 (0.1-1.0); Neutrophils # 5.1 K/mm3 (1.8-7.8); Neutrophils % 56.2 % (37.0-80.0); Nucleated Red Blood Cells # 0 10^3/uL; Nucleated Red Blood Cells % 0 %; Platelet Count 174 K/mm3 (142-424); Red Cell Distribution Width 14.5 % (11.5-17.5); Red Cell Distribution Width-SD 46.3 fL
[2025-02-04 14:58] LABS: Albumin Level 4.6 g/dl (3.5-5.0); Chloride 108 mmol/L (98-107); Sodium 143 mmol/L (136-145)
[2025-02-04 14:59] LABS: Potassium 3.7 mmoL/L (3.5-5.1)
[2025-02-04 15:01] LABS: Alanine Aminotransferase 24 U/L (12-78); Anion Gap 13.7 mEq/L (5-15); Aspartate Amino Transferase 34 U/L (17-59); Blood Urea Nitrogen 20 mg/dl (9-20); Carbon Dioxide 25 mmol/L (22.0-30.0); Estimated Glomerular Filt Rate 58 ml/min (>60); GFR (African American) 71 ML/MIN (>60)
[2025-02-04 15:02] LABS: Albumin/Globulin Ratio 1.3 (1.1-1.8); Alkaline Phosphatase 72 U/L (38-126); Bilirubin,Total 0.8 mg/dl (0.2-1.3); Calcium 9.7 mg/dl (8.4-10.2); Cholesterol 211 mg/dl (140-200); Globulin 3.5 g/dL (1.3-3.2); Glucose 171 mg/dl (74-100); HDL Cholesterol 70 mg/dl (40-60); Total Protein,Serum 8.1 g/dl (6.3-8.2); Triglycerides 119 mg/dl (30-150); VLDL Cholesterol 24 mg/dL (0-40)
[2025-02-04 15:05] LABS: Activated Partial Thrombo Time 26.5 seconds (22.8-30.6); Ethyl Alcohol < 10 mg/dl (0-10); INR 0.98 (0.9-1.1); Prothrombin Time 10.9 seconds (10.1-12.5)
[2025-02-04 15:13] LABS: Direct LDL Cholesterol 102.21 mg/dL (100-129)
[2025-02-04 15:15] LABS: Troponin I 0.05 ng/ml (0.00-0.034)
--- NOTE | 2025-02-04 15:32 | PC.NURSE ---
Pt sister at bedside, pt changed into gown, external male cath placed to LWS, call light within reach
[2025-02-04 15:34] LABS: Microscopic, Urine URINE MICROSCOPIC (MICROSCOPIC)
[2025-02-04 15:36] LABS: Appearance,Urine SL CLOUDY (Clear); Bilirubin,Urine Negative (Negative); Blood, Urine Negative (Negative); Color,Urine YELLOW (Yellow); Glucose,Urine (UA) Negative (Negative); Ketones,Urine TRACE (Negative); Leukocyte Esterase,Urine Negative (Negative); Nitrate,Urine Negative (Negative); PH,Urine 6.5 (5.0-8.5); Protein,Urine 1+ (Negative)
[2025-02-04] MEDS: TENECTEPLASE 50MG VIAL (STROKE) 22.5 MG IV (15:45)
[2025-02-04 15:46] LABS: Bacteria,Urine Trace /lpf
[2025-02-04 15:47] LABS: Amphetamine/Metha Screen,Urine Negative ng/ml (<1000)
[2025-02-04 15:48] LABS: Barbiturates Screen,Urine Negative ng/ml (<200)
--- NOTE | 2025-02-04 15:48 | PC.NURSE ---
TNK administered at 1545 total per pharmacy was 22.5 mg
[2025-02-04 15:49] LABS: Benzodiazepines Screen,Urine Negative ng/ml (<200); Cannabinoid Screen,Urine Negative ng/ml (<50)
[2025-02-04 15:50] LABS: Cocaine Screen,Urine Negative ng/ml (<300)
[2025-02-04 15:51] LABS: Methadone Screen,Urine Negative ng/ml (<300); Opiate Screen,Urine Negative ng/ml (<300)
[2025-02-04 15:52] LABS: Phencyclidine Screen,Urine Negative ng/ml (<25)
--- NOTE | 2025-02-04 15:57 | PC.NURSE ---
Contacted [employer] [place] [facility] for transfer flight to 2B ICU at . They are checking weather and will call us back.
[2025-02-04] MEDS: TENECTEPLASE 50MG VIAL IV (16:05)
--- NOTE | 2025-02-04 16:41 | PC.NURSE ---
Bedside report to Татьяна flight RN EVAC
[2025-02-04 17:12] LABS: HIV Combo NEGATIVE (Negative)
[2025-02-04 17:15] LABS: Hepatitis C Ab Qual. W/ RFX NEGATIVE (Negative)
== END 2025-02-04 16:47 | disposition home or self-care (01) ==
PROVIDERS: Emergency Provider Emergency Medicine; PCP Family Medicine
DX: I63.9 Cerebral infarction, unspecified (principal); J44.9 Chronic obstructive pulmonary disease, unspecified; F17.210 Nicotine dependence, cigarettes, uncomplicated; I10 Essential (primary) hypertension; Z11.59 Encounter for screening for other viral diseases; Z11.4 Encounter for screening for human immunodeficiency virus [HIV]; F10.20 Alcohol dependence, uncomplicated
CPT/HCPCS: 70450; 70496; 70498; 80053; 80061; 80307; 80320; 81001; 84484; 85025; 85610; 85730; 86803; 87389; 93005; 96374; 99291; J3101; Q9967

== ENCOUNTER 2025-06-13 09:53 | Outpatient (CLI) | payer MEDICARE, SELFPAY ==
--- OUTSIDE RECORDS SUMMARY | 2025-04-19 20:00 | XMS_ITS | Clinical Summary ---
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 02-04 00:00: 00 DYSPHAGIA FOLLOWING CEREBRAL INFARCTION Active 02-04 00:00: 00 DYSPHAGIA, OROPHARYNGEA L PHASE Active 02-04 00:00: 00 DYSARTHRIA FOLLOWING CEREBRAL INFARCTION Active 02-04 00:00: 00 ESSENTIAL (PRIMARY) HYPERTENSION Active 09-07 00:00: 00 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 09-07 00:00: 00 CHRONIC OBSTRUCTIVE PULMONARY DISEASE, UNSPECIFIED Active 09-07 00:00: 00 PERIPHERAL VASCULAR DISEASE, UNSPECIFIED Active 09-07 00:00: 00 NONRHEUMATIC AORTIC (VALVE) STENOSIS Active 09-07 00:00: 00 PRIMARY GENERALIZED (OSTEO)ARTHR ITIS Active 09-07 00:00: 00 MODERATE PROTEIN-MICHELLE TEJ MALNUTRITION Active 09-07 00:00: 00 DEPRESSION, UNSPECIFIED Active 09-07 00:00: 00 ANXIETY DISORDER, UNSPECIFIED Active 09-07 00:00: 00 ALCOHOL ABUSE, UNCOMPLICATE D Active 09-07 00:00: 00 HYPERLIPIDEM IA, UNSPECIFIED Active 09-07 00:00: 00 GASTRO-ESOPH AGEAL REFLUX DISEASE WITHOUT ESOPHAGITIS Active 09-07 00:00: 00 TOBACCO USE Active 01-05 00:00: 00 VOLUNTEER PATIENT REPRESENTATIVE (CURRENT) USE OF ANTITHROMBOT ICS/ANTIPLAT ELETS Active 09-07 00:00: 00 ACQUIRED ABSENCE OF LEFT UPPER LIMB, UNSPECIFIED LEVEL Active 09-07 00:00: 00 Allergies, Adverse Reactions, Alerts Allergy Name Allergy Type Status Severity Reaction(s) Onset Date Inactive Date Treating Clinician Comments NO KNOWN ALLERGIES Propensity to adverse reactions Active 02-24 21:54: 49 Medications Ordered Medication Name Filled Medication Name Start Date Stop Date Current Medication? Ordering Clinician Indication Dosage Frequency Signature (SIG) Comments Components aspirin 81 mg tablet,kevon yed release 02-24 00:00: 00 Yes [id number] PREVENTION 1 tablet DAILY 1 tablet DAILY (route: oral) Med Classific ation: Hematolog ical Agents atorvastati n 40 mg tablet 02-24 00:00: 00 Yes [id number] CHOLESTEROL 1 tablet EVERY PM 1 tablet EVERY PM (route: oral) Med Classific ation: Cardiovas cular Therapy Agents bisoprolol fumarate 5 mg tablet 02-24 00:00: 00 Yes [id number] HTN 0.5 tablet 2 TIMES DAILY 0.5 tablet 2 TIMES DAILY (route: oral) Med Classific ation: Cardiovas cular Therapy Agents cholecalcif thai (vitamin D3) 125 mcg (5,000 unit) capsule 02-24 00:00: 00 Yes [id number] SUPPLEMENT 1 capsule 2 TIMES DAILY 1 capsule 2 TIMES DAILY (route: oral) Med Classific ation: Electroly te Balance-N utritiona l Products clopidogrel 75 mg tablet 02-24 00:00: 00 Yes [id number] PREVENTION 1 tablet DAILY 1 tablet DAILY (route: oral) Med Classific ation: Hematolog ical Agents cyanocobala min (vit B-12) 1,000 mcg tablet 02-24 00:00: 00 Yes [id number] SUPPLEMENT 1 tablet DAILY 1 tablet DAILY (route: oral) Med Classific ation: Electroly te Balance-N utritiona l Products ferrous sulfate 324 mg (65 mg iron) tablet,kevon yed release 02-24 00:00: 00 Yes [id number] SUPPLEMENT 1 tablet DAILY 1 tablet DAILY (route: oral) Med Classific ation: Electroly te Balance-N utritiona l Products folic acid 1 mg tablet 02-24 00:00: 00 Yes [id number] SUPPLEMENT 1 tablet DAILY 1 tablet DAILY (route: oral) Med Classific ation: Electroly te Balance-N utritiona l Products hydralazine 100 mg tablet 02-24 00:00: 00 Yes [id number] HTN 1 tablet EVERY 8 HOURS 1 tablet EVERY 8 HOURS (route: oral) Med Classific ation: Cardiovas cular Therapy Agents Lexapro 10 mg tablet 02-24 00:00: 00 Yes [id number] MOOD 1 tablet DAILY 1 tablet DAILY (route: oral) Med Classific ation: Central Nervous System Agents nifedipine ER 60 mg tablet,exte nded release 02-24 00:00: 00 Yes [id number] HTN 1 tablet 2 TIMES DAILY 1 tablet 2 TIMES DAILY (route: oral) Med Classific ation: Cardiovas cular Therapy Agents pantoprazol e 40 mg tablet,kevon yed release 02-24 00:00: 00 Yes [id number] GGERD 1 tablet DAILY 1 tablet DAILY (route: oral) Med Classific ation: Gastroint estinal Therapy Agents terazosin 2 mg capsule 02-24 00:00: 00 Yes [id number] HTN 1 capsule BEDTIME 1 capsule BEDTIME (route: oral) Med Classific ation: Cardiovas cular Therapy Agents thiamine HCl (vitamin B1) 100 mg capsule 02-24 00:00: 00 Yes [id number] SUPPLEMENT 1 capsule DAILY 1 capsule DAILY (route: oral) Med Classific ation: Electroly te Balance-N utritiona l Products Vitamin C 1,000 mg tablet 02-24 00:00: 00 Yes [id number] SUPPLEMENT 1 tablet DAILY 1 tablet DAILY (route: oral) Med Classific ation: Electroly te Balance-N utritiona l Products Vital Signs Vital Name Observation Time Observation Value Commen ts Temperature 2025-04-20 12:29:00.000 98.1 [degF] Temperature 2025-04-03 11:07:00.000 96.9 [degF] Temperature 2025-03-28 11:09:00.000 97.2 [degF] Temperature 2025-03-27 12:35:00.000 97.6 [degF] Temperature 2025-03-22 12:58:00.000 98.6 [degF] Temperature 2025-03-21 11:19:00.000 96.9 [degF] Temperature 2025-03-13 14:58:00.000 97.8 [degF] Temperature 2025-03-08 14:25:00.000 98.7 [degF] Temperature 2025-03-07 12:11:00.000 97.1 [degF] Temperature 2025-03-06 16:00:00.000 97.4 [degF] Temperature 2025-03-03 14:09:00.000 98.8 [degF] Temperature 2025-03-01 10:15:00.000 97.7 [degF] Temperature 2025-02-28 14:11:00.000 97.4 [degF] Temperature 2025-02-27 13:35:00.000 98.4 [degF] Temperature 2025-02-24 13:34:00.000 98.8 [degF] BMI (%) 2025-02-24 13:25:25.000 25 kg/m2 Height 2025-02-24 13:25:15.000 69 [in_us] Pulse 2025-04-20 12:29:00.000 74 /min Pulse 2025-04-03 11:07:00.000 76 /min Pulse 2025-03-28 11:09:00.000 74 /min Pulse 2025-03-27 12:35:00.000 59 /min Pulse 2025-03-22 12:58:00.000 64 /min Pulse 2025-03-21 11:19:00.000 67 /min Pulse 2025-03-13 14:58:00.000 76 /min Pulse 2025-03-08 14:25:00.000 68 /min Pulse 2025-03-07 12:11:00.000 73 /min Pulse 2025-03-06 16:00:00.000 70 /min Pulse 2025-03-03 14:09:00.000 70 /min Pulse 2025-03-01 10:15:00.000 63 /min Pulse 2025-02-28 14:11:00.000 70 /min Pulse 2025-02-27 13:35:00.000 66 /min Pulse 2025-02-24 13:34:00.000 85 /min O2 Saturation (%) 2025-04-20 12:29:00.000 95 % O2 Saturation (%) 2025-04-03 11:07:00.000 96 % O2 Saturation (%) 2025-03-28 11:09:00.000 95 % O2 Saturation (%) 2025-03-27 12:35:00.000 97 % O2 Saturation (%) 2025-03-22 12:58:00.000 96 % O2 Saturation (%) 2025-03-21 11:19:00.000 97 % O2 Saturation (%) 2025-03-13 14:58:00.000 95 % O2 Saturation (%) 2025-03-08 14:25:00.000 96 % O2 Saturation (%) 2025-03-07 12:11:00.000 95 % O2 Saturation (%) 2025-03-06 16:00:00.000 97 % O2 Saturation (%) 2025-03-03 14:09:00.000 94 % O2 Saturation (%) 2025-03-01 10:15:00.000 98 % O2 Saturation (%) 2025-02-28 14:11:00.000 96 % O2 Saturation (%) 2025-02-27 13:35:00.000 95 % O2 Saturation (%) 2025-02-24 13:34:00.000 96 % Respirations 2025-04-20 12:29:00.000 18 /min Respirations 2025-04-03 11:07:00.000 17 /min Respirations 2025-03-28 11:09:00.000 18 /min Respirations 2025-03-27 12:35:00.000 16 /min Respirations 2025-03-22 12:58:00.000 18 /min Respirations 2025-03-21 11:19:00.000 18 /min Respirations 2025-03-13 14:58:00.000 17 /min Respirations 2025-03-08 14:25:00.000 18 /min Respirations 2025-03-07 12:11:00.000 18 /min Respirations 2025-03-06 16:00:00.000 17 /min Respirations 2025-03-03 14:09:00.000 18 /min Respirations 2025-03-01 10:15:00.000 18 /min Respirations 2025-02-28 14:11:00.000 18 /min Respirations 2025-02-27 13:35:00.000 16 /min Respirations 2025-02-24 13:34:00.000 16 /min Weight (lbs) 2025-02-24 13:25:25.000 172 [lb_av] Systolic Blood Pressure 2025-04-20 12:29:00.000 142 mm [Hg] Systolic Blood Pressure 2025-04-03 11:07:00.000 144 mm [Hg] Systolic Blood Pressure 2025-03-28 11:09:00.000 141 mm [Hg] Systolic Blood Pressure 2025-03-27 12:35:00.000 116 mm [Hg] Systolic Blood Pressure 2025-03-22 12:58:00.000 108 mm [Hg] Systolic Blood Pressure 2025-03-21 11:19:00.000 146 mm [Hg] Systolic Blood Pressure 2025-03-13 14:58:00.000 128 mm [Hg] Systolic Blood Pressure 2025-03-08 14:25:00.000 128 mm [Hg] Systolic Blood Pressure 2025-03-07 12:11:00.000 109 mm [Hg] Systolic Blood Pressure 2025-03-06 16:00:00.000 136 mm [Hg] Systolic Blood Pressure 2025-03-03 14:09:00.000 128 mm [Hg] Systolic Blood Pressure 2025-03-01 10:15:00.000 142 mm [Hg] Systolic Blood Pressure 2025-02-28 14:11:00.000 152 mm [Hg] Systolic Blood Pressure 2025-02-27 13:35:00.000 142 mm [Hg] Systolic Blood Pressure 2025-02-24 13:34:00.000 180 mm [Hg] Diastolic Blood Pressure 2025-04-20 12:29:00.000 86 mm [Hg] Diastolic Blood Pressure 2025-04-03 11:07:00.000 84 mm [Hg] Diastolic Blood Pressure 2025-03-28 11:09:00.000 78 mm [Hg] Diastolic Blood Pressure 2025-03-27 12:35:00.000 76 mm [Hg] Diastolic Blood Pressure 2025-03-22 12:58:00.000 66 mm [Hg] Diastolic Blood Pressure 2025-03-21 11:19:00.000 82 mm [Hg] Diastolic Blood Pressure 2025-03-13 14:58:00.000 90 mm [Hg] Diastolic Blood Pressure 2025-03-08 14:25:00.000 68 mm [Hg] Diastolic Blood Pressure 2025-03-07 12:11:00.000 60 mm [Hg] Diastolic Blood Pressure 2025-03-06 16:00:00.000 84 mm [Hg] Diastolic Blood Pressure 2025-03-03 14:09:00.000 64 mm [Hg] Diastolic Blood Pressure 2025-03-01 10:15:00.000 70 mm [Hg] Diastolic Blood Pressure 2025-02-28 14:11:00.000 72 mm [Hg] Diastolic Blood Pressure 2025-02-27 13:35:00.000 76 mm [Hg] Diastolic Blood Pressure 2025-02-24 13:34:00.000 78 mm [Hg] Plan of Treatment Planned Activity Planned Date Details Comments Future Scheduled Test RN TO OBSE RVE, ASSESS, EVALUATE, AND DEVELOP AN INDIVIDUALIZED PLAN OF CARE. AGENCY MAY ACCEPT ORDERS FROM CONSULTING PHYSICIANS CARLEE DEVINE. RN TO OBSERVE AND ASSESS, VOLUNTEER ASSISTANT/TRAIN CONTROLLER TO OBSERVE FOR RISK FOR FALLS AND INSTRUCT IN FALL PREVENTION, HOME SAFETY, MEDICATION MANAGEMENT, INFECTION PREVENTION, AND NUTRITION MANAGEMENT. RN/VOLUNTEER ASSISTANT/TRAIN CONTROLLER NURSE MAY PERFORM O2 SATURATION LEVEL ON ADMISSION AND PRN FOR DESAT FOR RN TO ASSESS/VOLUNTEER ASSISTANT TO OBSERVE PATIENT, WITH NOTIFICATION TO THE PHYSICIAN IF SATURATION IS 90% IN THE ABSENCE OF MORE SPECIFIC PARAMETERS FROM THE PHYSICIAN. AGENCY MAY PERFORM A RESUMPTION OF CARE VISIT FOLLOWING ANY HOSPITAL ADMISSION. RN/VOLUNTEER ASSISTANT/TRAIN CONTROLLER TO MONITOR CO-MORBID CONDITIONS LISTED ON THE PLAN OF CARE AND ANY NEW CONDITIONS THAT PRESENT THEMSELVES DURING THIS EPISODE TO IDENTIFY CHANGES AND INTERVENE TO MINIMIZE COMPLICATIONS. [code = RN TO OBSERVE, ASSESS, EVALUATE, AND DEVELOP AN INDIVIDUALIZED PLAN OF CARE. AGENCY MAY ACCEPT ORDERS FROM CONSULTING PHYSICIANS CARLEE DEVINE. RN TO OBSERVE AND ASSESS, VOLUNTEER ASSISTANT/TRAIN CONTROLLER TO OBSERVE FOR RISK FOR FALLS AND INSTRUCT IN FALL PREVENTION, HOME SAFETY, MEDICATION MANAGEMENT, INFECTION PREVENTION, AND NUTRITION MANAGEMENT. RN/VOLUNTEER ASSISTANT/TRAIN CONTROLLER NURSE MAY PERFORM O2 SATURATION LEVEL ON ADMISSION AND PRN FOR DESAT FOR RN TO ASSESS/VOLUNTEER ASSISTANT TO OBSERVE PATIENT, WITH NOTIFICATION TO THE PHYSICIAN IF SATURATION IS 90% IN THE ABSENCE OF MORE SPECIFIC PARAMETERS FROM THE PHYSICIAN. AGENCY MAY PERFORM A RESUMPTION OF CARE VISIT FOLLOWING ANY HOSPITAL ADMISSION. RN/VOLUNTEER ASSISTANT/TRAIN CONTROLLER TO MONITOR CO-MORBID CONDITIONS LISTED ON THE PLAN OF CARE AND ANY NEW CONDITIONS THAT PRESENT THEMSELVES DURING THIS EPISODE TO IDENTIFY CHANGES AND INTERVENE TO MINIMIZE COMPLICATIONS.] Future Scheduled Test RISK FOR H OSPITALIZATION; RN TO ASSESS/TEACH, TRAIN CONTROLLER/VOLUNTEER ASSISTANT TO OBSERVE/TEACH PATIENT/CAREGIVER ON RISK FOR HOSPITALIZATION/EMERGENCY ROOM VISITS, TEACH SIGNS AND SYMPTOMS THAT PUT PATIENT AT RISK, WHEN TO NOTIFY NURSE/PHYSICIAN OF COMPLICATIONS/DECLINE, AND WHEN TO CALL 911. [code = RISK FOR HOSPITALIZATION; RN TO ASSESS/TEACH, TRAIN CONTROLLER/VOLUNTEER ASSISTANT TO OBSERVE/TEACH PATIENT/CAREGIVER ON RISK FOR HOSPITALIZATION/EMERGENCY ROOM VISITS, TEACH SIGNS AND SYMPTOMS THAT PUT PATIENT AT RISK, WHEN TO NOTIFY NURSE/PHYSICIAN OF COMPLICATIONS/DECLINE, AND WHEN TO CALL 911.] Future Scheduled Test CARDIOVASC ULAR SYSTEM; RN TO ASSESS/TEACH, VOLUNTEER ASSISTANT/TRAIN CONTROLLER TO OBSERVE/TEACH RELATED TO ALTERED CARDIOVASCULAR STATUS TO MINIMIZE COMPLICATIONS AND REDUCE HOSPITALIZATION. [code = CARDIOVASCULAR SYSTEM; RN TO ASSESS/TEACH, VOLUNTEER ASSISTANT/TRAIN CONTROLLER TO OBSERVE/TEACH RELATED TO ALTERED CARDIOVASCULAR STATUS TO MINIMIZE COMPLICATIONS AND REDUCE HOSPITALIZATION.] Future Scheduled Test HYPERTENSI ON MANAGEMENT; RN TO ASSESS AND TEACH, VOLUNTEER ASSISTANT/TRAIN CONTROLLER TO OBSERVE AND TEACH WARNING SIGNS AND SYMPTOMS TO AVOID HOSPITALIZATION. [code = HYPERTENSION MANAGEMENT; RN TO ASSESS AND TEACH, VOLUNTEER ASSISTANT/TRAIN CONTROLLER TO OBSERVE AND TEACH WARNING SIGNS AND SYMPTOMS TO AVOID HOSPITALIZATION.] Future Scheduled Test NEUROLOGIC AL SYSTEM MANAGEMENT; RN TO ASSESS AND TEACH, TRAIN CONTROLLER/VOLUNTEER ASSISTANT TO OBSERVE AND TEACH RELATED TO ALTERED NEUROLOGICAL STATUS TO MINIMIZE COMPLICATIONS AND REDUCE HOSPITALIZATION. [code = NEUROLOGICAL SYSTEM MANAGEMENT; RN TO ASSESS AND TEACH, TRAIN CONTROLLER/VOLUNTEER ASSISTANT TO OBSERVE AND TEACH RELATED TO ALTERED NEUROLOGICAL STATUS TO MINIMIZE COMPLICATIONS AND REDUCE HOSPITALIZATION.] Future Scheduled Test CEREBRAL V ASCULAR ACCIDENT MANAGEMENT; RN/TRAIN CONTROLLER/VOLUNTEER ASSISTANT TO PROVIDE SKILLED TEACHING AND MANAGEMENT OF POST CEREBRAL VASCULAR ACCIDENT. [code = CEREBRAL VASCULAR ACCIDENT MANAGEMENT; RN/TRAIN CONTROLLER/VOLUNTEER ASSISTANT TO PROVIDE SKILLED TEACHING AND MANAGEMENT OF POST CEREBRAL VASCULAR ACCIDENT.] Future Scheduled Test PAIN MANAG EMENT; RN TO ASSESS AND TEACH, TRAIN CONTROLLER/VOLUNTEER ASSISTANT TO OBSERVE AND TEACH AND PROVIDE EDUCATION ON PAIN MANAGEMENT TECHNIQUES. [code = PAIN MANAGEMENT; RN TO ASSESS AND TEACH, TRAIN CONTROLLER/VOLUNTEER ASSISTANT TO OBSERVE AND TEACH AND PROVIDE EDUCATION ON PAIN MANAGEMENT TECHNIQUES.] Future Scheduled Test FALL REDUC TION MANAGEMENT; RN TO ASSESS AND OBSERVE, VOLUNTEER ASSISTANT/TRAIN CONTROLLER TO OBSERVE FALL RISK FACTORS AND EDUCATE PATIENT/CAREGIVER ON STRATEGIES TO MINIMIZE THE RISK OF FALLING. [code = FALL REDUCTION MANAGEMENT; RN TO ASSESS AND OBSERVE, VOLUNTEER ASSISTANT/TRAIN CONTROLLER TO OBSERVE FALL RISK FACTORS AND EDUCATE PATIENT/CAREGIVER ON STRATEGIES TO MINIMIZE THE RISK OF FALLING.] Future Scheduled Test PRN VISITS ; NUMBER OF RN/VOLUNTEER ASSISTANT/TRAIN CONTROLLER VISITS: 1 RN/VOLUNTEER ASSISTANT/TRAIN CONTROLLER TO PERFORM: NEUROLOGICAL EVALUATION FOR THE FOLLOWING REASONS: INABILITY TO MOVE ONE SIDE, SLURRED SPEECH, LETHARGY, INABILITY TO SPEAK, [code = PRN VISITS; NUMBER OF RN/VOLUNTEER ASSISTANT/TRAIN CONTROLLER VISITS: 1 RN/VOLUNTEER ASSISTANT/TRAIN CONTROLLER TO PERFORM: NEUROLOGICAL EVALUATION FOR THE FOLLOWING REASONS: INABILITY TO MOVE ONE SIDE, SLURRED SPEECH, LETHARGY, INABILITY TO SPEAK,] Future Scheduled Test AGENCY MAY PERFORM A RESUMPTION OF CARE VISIT FOLLOWING ANY HOSPITAL ADMISSION. OT TO EVALUATE, OBSERVE / ASSESS, AND MONITOR, FILM AND VIDEO GRAPHICS DESIGNER TO OBSERVE AND MONITOR, PROVIDE SKILLED THERAPEUTIC INTERVENTION, ACTIVITY, EDUCATION, AND TRAINING TO ADDRESS ADLS/IADLS, ADAPTIVE EQUIPMENT, STRENGTHENING, BALANCE, AND FUNCTIONAL TRANSFERS TO MAXIMIZE SAFETY AND FUNCTIONAL INDEPENDENCE IN HOME PERSONAL HYGIENE/GROOMING (OT/CESAR) BATHING/SHOWERING (OT/FILM AND VIDEO GRAPHICS DESIGNER) DRESSING (OT/CESAR) ACTIVITIES OF DAILY LIVING (OT/FILM AND VIDEO GRAPHICS DESIGNER) TOILET TRANSFER (OT/CESAR) BATH/SHOWER TRANSFER (OT/FILM AND VIDEO GRAPHICS DESIGNER) POSTURAL CONTROL/BALANCE (OT/CESAR) THERAPEUTIC EXERCISE (OT/FILM AND VIDEO GRAPHICS DESIGNER) OT TO ASSESS / CESAR TO MONITOR CARDIO/RESPIRATORY SYSTEM; AND NOTIFY THE PHYSICIAN AND/OR THE RN CLINICAL DAY CARE CENTER DIRECTOR FOR PHYSICIAN NOTIFICATION FOR EARLY SIGNS AND SYMPTOMS OF EXACERBATION OR DETERORATION OT/CESAR TO MONITOR AND EDUCATE ON OXYGEN SATURATION DURING ADLS/IADLS, NOTIFY PHYSICIAN AND/OR THE RN CLINICAL DAY CARE CENTER DIRECTOR FOR PHYSICIAN NOTIFICATION AND IF O2 SATS BELOW 90% AFTER 10 MIN OF REST. OT/CESAR TO EDUCATE ON COPD SELF-MANAGEMENT OT / FILM AND VIDEO GRAPHICS DESIGNER TO EDUCATE ON CVA SELF-MANAGEMENT [code = AGENCY MAY PERFORM A RESUMPTION OF CARE VISIT FOLLOWING ANY HOSPITAL ADMISSION. OT TO EVALUATE, OBSERVE / ASSESS, AND MONITOR, FILM AND VIDEO GRAPHICS DESIGNER TO OBSERVE AND MONITOR, PROVIDE SKILLED THERAPEUTIC INTERVENTION, ACTIVITY, EDUCATION, AND TRAINING TO ADDRESS ADLS/IADLS, ADAPTIVE EQUIPMENT, STRENGTHENING, BALANCE, AND FUNCTIONAL TRANSFERS TO MAXIMIZE SAFETY AND FUNCTIONAL INDEPENDENCE IN HOME PERSONAL HYGIENE/GROOMING (OT/CESAR) BATHING/SHOWERING (OT/CESAR) DRESSING (OT/CESAR) ACTIVITIES OF DAILY LIVING (OT/CESAR) TOILET TRANSFER (OT/CESAR) BATH/SHOWER TRANSFER (OT/FILM AND VIDEO GRAPHICS DESIGNER) POSTURAL CONTROL/BALANCE (OT/FILM AND VIDEO GRAPHICS DESIGNER) THERAPEUTIC EXERCISE (OT/CESAR) OT TO ASSESS / FILM AND VIDEO GRAPHICS DESIGNER TO MONITOR CARDIO/RESPIRATORY SYSTEM; AND NOTIFY THE PHYSICIAN AND/OR THE RN CLINICAL DAY CARE CENTER DIRECTOR FOR PHYSICIAN NOTIFICATION FOR EARLY SIGNS AND SYMPTOMS OF EXACERBATION OR DETERORATION OT/FILM AND VIDEO GRAPHICS DESIGNER TO MONITOR AND EDUCATE ON OXYGEN SATURATION DURING ADLS/IADLS, NOTIFY PHYSICIAN AND/OR THE RN CLINICAL DAY CARE CENTER DIRECTOR FOR PHYSICIAN NOTIFICATION AND IF O2 SATS BELOW 90% AFTER 10 MIN OF REST. OT/FILM AND VIDEO GRAPHICS DESIGNER TO EDUCATE ON COPD SELF-MANAGEMENT OT / FILM AND VIDEO GRAPHICS DESIGNER TO EDUCATE ON CVA SELF-MANAGEMENT] Future Scheduled Test AGENCY MAY PERFORM A RESUMPTION OF CARE VISIT FOLLOWING ANY HOSPITAL ADMISSION. PT TO EVALUATE, OBSERVE / ASSESS, AND MONITOR, MAINTENANCE TEAM MEMBER TO OBSERVE AND MONITOR, PROVIDE SKILLED THERAPEUTIC INTERVENTION, ACTIVITY, EDUCATION, AND TRAINING TO ADDRESS; PT/MAINTENANCE TEAM MEMBER TO PROVIDE GAIT TRAINING FOR IMPROVED MOBILITY AND /OR TO NORMALIZE GAIT PATTERN NEUROMUSCULAR RE-EDUCATION / BALANCE / POSTURAL CONTROL (PT) THERAPEUTIC EXERCISES AND ESTABLISHING A HOME EXERCISE PROGRAM (PT/MAINTENANCE TEAM MEMBER) CHAIR TRANSFERS (PT/MAINTENANCE TEAM MEMBER) PT TO ASSESS / MAINTENANCE TEAM MEMBER TO MONITOR CARDIO/RESPIRATORY SYSTEM; AND NOTIFY THE PHYSICIAN AND/OR THE RN CLINICAL DAY CARE CENTER DIRECTOR FOR PHYSICIAN NOTIFICATION FOR EARLY SIGNS AND SYMPTOMS OF EXACERBATION OR DETERIORATION. PT / MAINTENANCE TEAM MEMBER TO EDUCATE ON CVA SELF-MANAGEMENT PT / MAINTENANCE TEAM MEMBER TO MONITOR AND EDUCATE ON OXYGEN SATURATION DURING ADLS/IADLS, NOTIFY PHYSICIAN AND/OR THE RN CLINICAL DAY CARE CENTER DIRECTOR FOR PHYSICIAN NOTIFICATION AND IF O2 SATS BELOW PHYSICIAN ORDERED PARAMETERS AFTER 10 MIN OF REST [code = AGENCY MAY PERFORM A RESUMPTION OF CARE VISIT FOLLOWING ANY HOSPITAL ADMISSION. PT TO EVALUATE, OBSERVE / ASSESS, AND MONITOR, MAINTENANCE TEAM MEMBER TO OBSERVE AND MONITOR, PROVIDE SKILLED THERAPEUTIC INTERVENTION, ACTIVITY, EDUCATION, AND TRAINING TO ADDRESS; PT/MAINTENANCE TEAM MEMBER TO PROVIDE GAIT TRAINING FOR IMPROVED MOBILITY AND /OR TO NORMALIZE GAIT PATTERN NEUROMUSCULAR RE-EDUCATION / BALANCE / POSTURAL CONTROL (PT) THERAPEUTIC EXERCISES AND ESTABLISHING A HOME EXERCISE PROGRAM (PT/MAINTENANCE TEAM MEMBER) CHAIR TRANSFERS (PT/MAINTENANCE TEAM MEMBER) PT TO ASSESS / MAINTENANCE TEAM MEMBER TO MONITOR CARDIO/RESPIRATORY SYSTEM; AND NOTIFY THE PHYSICIAN AND/OR THE RN CLINICAL DAY CARE CENTER DIRECTOR FOR PHYSICIAN NOTIFICATION FOR EARLY SIGNS AND SYMPTOMS OF EXACERBATION OR DETERIORATION. PT / MAINTENANCE TEAM MEMBER TO EDUCATE ON CVA SELF-MANAGEMENT PT / MAINTENANCE TEAM MEMBER TO MONITOR AND EDUCATE ON OXYGEN SATURATION DURING ADLS/IADLS, NOTIFY PHYSICIAN AND/OR THE RN CLINICAL DAY CARE CENTER DIRECTOR FOR PHYSICIAN NOTIFICATION AND IF O2 SATS BELOW PHYSICIAN ORDERED PARAMETERS AFTER 10 MIN OF REST] Goal 2025-04-20 Patient Goal - TO GET STRONG ER Goal Provider Goal - A PLAN OF CARE WILL BE ESTABLISHED THAT MEETS THE PATIENT S NEEDS. PATIENT WILL DEMONSTRATE OXYGEN SATURATION WITHIN NORMAL LIMITS OR PATIENT S OPTIMAL LEVEL ESTABLISHED BY THE PHYSICIAN THROUGHOUT CARE. CHANGES TO CO-MORBID CONDITIONS AND ANY NEW CONDITIONS WILL BE IDENTIFIED AND REPORTED TO THE PHYSICIAN. Goal Provider Goal - PATIENT/CAREGIVER WILL VERBALIZE UNDERSTANDING OF SIGNS AND SYMPTOMS THAT PUT THE PATIENT AT RISK FOR HOSPITALIZATION /EMERGENCY ROOM VISITS, WHEN TO NOTIFY NURSE/PHYSICIAN OF COMPLICATIONS/DECLINE AND WHEN TO CALL 911. Goal Provider Goal - PATIENT / CAREGIVER WILL VERBALIZE/DEMONSTRATE UNDERSTANDING OF MEASURES TO MANAGE ALTERED CARDIOVASCULAR STATUS BY 04/24/2025 Goal Provider Goal - PATIENT / CAREGIVER WILL VERBALIZE/DEMONSTRATE AN ABILITY TO ADHERE TO SELF-MANAGEMENT OF HTN TO MINIMIZE COMPLICATIONS AND AVOID HOSPITALIZATION BY END OF EPISODE. Goal Provider Goal - PATIENT / CAREGIVER WILL VERBALIZE/DEMONSTRATE UNDERSTANDING OF MEASURES TO MANAGE ALTERED NEUROLOGICAL STATUS BY 04/24/2025 Goal Provider Goal - PATIENT / CAREGIVER WILL VERBALIZE/DEMONSTRATE CARE AND SELF-MANAGEMENT OF CVA TO MINIMIZE COMPLICATIONS AND AVOID HOSPITALIZATION BY END OF EPISODE. Goal Provider Goal - PATIENT / CAREGIVER WILL VERBALIZE / DEMONSTRATE UNDERSTANDING OF PAIN CONTROL MEASURES BY 04/24/2025 Goal Provider Goal - PATIENT/CAREGIVER WILL VERBALIZE/DEMONSTRATE UNDERSTANDING OF FALL RISK FACTORS AND IMPLEMENT STRATEGIES TO MINIMIZE FALL RISK. PATIENT/CAREGIVER WILL VERBALIZE/DEMONSTRATE AN ABILITY TO ADHERE TO FALL REDUCTION SELF-MANAGEMENT AND LIFE-STYLE CHANGES BY 04/24/2025 Goal Provider Goal - Goal Provider Goal - OT STG: PATIENT WILL DEMONSTRATE IMPROVED ABILITY TO PERFORM GROOMING FROM MIN A TO SBA WITHIN 3 WEEKS OT LTG: PATIENT WILL DEMONSTRATE IMPROVED ABILITY TO PERFORM GROOMING FROM MIN A TO INDEPENDENT WITHIN 5 WEEKS OT STG: PATIENT WILL DEMONSTRATE IMPROVED ABILITY TO PERFORM BATHING/SHOWERING AND REDUCE CAREGIVER BURDEN FROM MIN A TO SBA WITHIN 3 WEEKS OT LTG: PATIENT WILL DEMONSTRATE IMPROVED ABILITY TO PERFORM BATHING/SHOWERING AND REDUCE CAREGIVER BURDEN FROM MIN A TO INDEPENDENT WITHIN 5 WEEKS OT STG: PATIENT WILL DEMONSTRATE IMPROVED ABILITY TO PERFORM UPPER BODY DRESSING TO REDUCE CAREGIVER BURDEN FROM MIN A TO SBA WITHIN 3 WEEKS OT LTG: PATIENT WILL DEMONSTRATE IMPROVED ABILITY TO PERFORM UPPER BODY DRESSING TO REDUCE CAREGIVER BURDEN FROM MIN A TO INDEPENDENT WITHIN 5 WEEKS OT STG: PATIENT WILL DEMONSTRATE IMPROVED ABILITY TO PERFORM LOWER BODY DRESSING TO REDUCE CAREGIVER BURDEN FROM MIN A TO SBA WITHIN 3 WEEKS OT LTG: PATIENT WILL DEMONSTRATE IMPROVED ABILITY TO PERFORM LOWER BODY DRESSING TO REDUCE CAREGIVER BURDEN FROM MIN A TO INDEPENDENT WITHIN 5 WEEKS OT LTG: PATIENT WILL DEMONSTRATE IMPROVEMENT IN MODIFIED CLARK INDEX SCORE FROM 82 TO 94 INDICATING DECREASED DEPENDENCY ON CAREGIVER ASSISTANCE WITH ACTIVITIES OF DAILY LIVING WITHIN 5 WEEKS OT STG: PATIENT WILL DEMONSTRATE IMPROVED ABILITY TO PERFORM TOILET TRANSFERS TO REDUCE FALL RISK AND RISK OF INCONTINENCE AND UTI DEVELOPMENT FROM CGA TO SBA WITHIN 3 WEEKS OT LTG: PATIENT WILL DEMONSTRATE IMPROVED ABILITY TO PERFORM TOILET TRANSFERS TO REDUCE FALL RISK AND RISK OF INCONTINENCE AND UTI DEVELOPMENT FROM CGA TO INDEPENDENT WITHIN 5 WEEKS OT STG: PATIENT WILL DEMONSTRATE IMPROVED ABILITY AND SAFETY TO PERFORM BATH/SHOWER TRANSFER FROM MOD A TO CGA WITHIN 3 WEEKS OT LTG: PATIENT WILL DEMONSTRATE IMPROVED ABILITY AND SAFETY TO PERFORM BATH/SHOWER TRANSFER FROM MOD A TO INDEPENDENT WITHIN 5 WEEKS OT LTG: PATIENT WILL DEMONSTRATE IMPROVED POSTURAL CONTROL AND DECREASED FALL RISK EVIDENCED BY AN IMPROVEMENT IN FUNCTIONAL REACH SCORE FROM UNABLE TO 8 INCHES WITHIN 5 WEEKS IN ORDER TO MAXIMIZE SAFETY WITH TRANSITIONAL MOVEMENTS DURING ADL PERFORMANCE OT LTG: PATIENT WILL DEMONSTRATE IMPROVED BALANCE/SENSORY INTEGRATION OF BALANCE SYSTEMS EVIDENCED BY AN IMPROVEMENT IN MCTSIB SCORE FROM 0/4 TO 1/4 WITHIN 5 WEEKS IN ORDER TO MAXIMIZE SAFETY WITH TRANSITIONAL MOVEMENTS DURING ADL PERFORMANCE OT LTG: PATIENT WILL DEMONSTRATE IMPROVED RIGHT MENTAL HEALTH AIDES TEACHER STRENGTH EVIDENCED BY AN IMPROVEMENT IN DYNAMOMETER MEASUREMENTS FROM 31 LBS TO 36 LBS WITHIN 5 WEEKS IN ORDER TO MANIPULATE ADL CONTAINERS OT LTG: PATIENT WILL DEMONSTRATE IMPROVED RUE MUSCLE STRENGTH EVIDENCED BY AN IMPROVEMENT IN MMT/FUNCTIONAL STRENGTH FROM 3+/5 TO 4/5 WITHIN 5 WEEKS IN ORDER TO MAXIMIZE ADL PERFORMANCE OT LTG: PATIENT WILL NOT EXPERIENCE CARDIAC OR RESPIRATORY COMPLICATIONS THROUGHOUT THE EPISODE OF CARE. OT LTG: PATIENT WILL MAINTAIN OXYGEN SATURATION WITHIN PHYSICIAN ORDERED PARAMETERS THROUGHOUT THE EPISODE OF CARE. OT GOAL: THE PATIENT / CAREGIVER WILL DEMONSTRATE ADHERENCE TO COPD SELF-MANAGEMENT BY END OF EPISODE . OT GOAL: PATIENT/CAREGIVER WILL BE VERBALIZE UNDERSTANDING OF A CVA, SIGNS/SYMPTOMS TO REPORT, WELL SELF-MANAGEMENT AND LIFE-STYLE CHANGES BY END OF EPISODE. Goal Provider Goal - PT LTG: PATIENT WILL DEMONSTRATE IMPROVED SAFE FUNCTIONAL MOBILITY BY MAINTAINING PROPER POSTURE ON EVEN AND UNEVEN SURFACES USING CANE FROM MIN TO SBA WITHIN 6 WEEKS IN ORDER TO GET TO MD APPTS PT LTG: PATIENT WILL DEMONSTRATE REDUCED FALL RISK EVIDENCED BY TUG TEST (CUT SCORE >11 SECONDS INDICATES INCREASED FALL RISK) IMPROVING FROM 21 TO 12 WITHIN 6 WEEKS PT LTG: PATIENT WILL DEMONSTRATE INCREASED STRENGTH OF RIGHT LE FROM 3- TO 4 WITHIN 6 WEEKS IN ORDER TO IMPROVE SAFE FUNCTIONAL AMBULATION PT LTG: PATIENT WILL DEMONSTRATE IMPROVED ABILITY TO PERFORM CHAIR TRANSFERS TO REDUCE THE RISK OF SKIN BREAKDOWN AND FALL RISK FROM MIN TO IND WITHIN 6 WEEKS PT LTG: PATIENT WILL NOT EXPERIENCE CARDIAC OR RESPIRATORY COMPLICATIONS THROUGHOUT THE EPISODE OF CARE. PT LTG: PATIENT/CAREGIVER WILL BE VERBALIZE UNDERSTANDING OF A CVA, SIGNS/SYMPTOMS TO REPORT, WELL SELF-MANAGEMENT AND LIFE-STYLE CHANGES BY END OF EPISODE. PT LTG: PATIENT WILL MAINTAIN OXYGEN SATURATION WITHIN PHYSICIAN ORDERED PARAMETERS THROUGHOUT EPISODE OF CARE. Reason for Visit INDEPENDENT WITH USE OF ASSISTIVE DEVICE Encounters Start Date/Time End Date/Time Encounter Type Admission Type Attending [facility] Care Department Encounter ID Discharge Date Discharge Status Discharge Condition Discharge Reason Percent Goals Met 2025-02-24 00:00:00 2025-04-20 00:00:00 Outpatient KEYUR ADAMS [facility] [id number] 2025-04-20 00:00:00 DISCHARGE TO HOME OR SELF CARE INDEPENDEN T WITH USE OF ASSISTIVE DEVICE HH - AUTH DENIED 55.88
[2025-06-13 08:42] VITALS: BMI 26.9
--- NOTE | 2025-06-13 09:57 | XR_ITS ---
FINAL REPORT CLINICAL HISTORY: preoperative exam smoker, copd cad, htn sx for epiglottis bx FINDINGS: AP and lateral views of the chest were obtained. There is no prior exam for comparison. The cardiac and mediastinal silhouettes are within normal limits. There is evidence of granulomatous disease. The lungs are otherwise clear. There is no pleural effusion or pneumothorax. No osseous abnormality is identified. IMPRESSION: No radiographic evidence of acute cardiac or pulmonary disease. Reviewed, Interpreted and Dictated by Siena Harley MD Transcribed by Niya Garza Authenticated and [facility]
--- OUTSIDE RECORDS SUMMARY | 2025-06-13 09:58 | XMS_ITS | Referral Summary ---
Author Organization [employer] ([place], [place], [place], [place]) Address [address] [place] [address] Care Team Providers Care Escort Blind Name Role Phone Unavailable Primary Care Provider Unavailabl e Social History Tobacco Use Types Packs/Day Years Used Date Smoking Tobacco: Never Assessed Food Insecurity Answer Date Recorded Food run out past 12 months Not on file 03/08 Food did not last past 12 months Not on file 03/31/2024 Employment Answer Date Recorded Help finding and keeping a job Not on file 0 03/31/2024 Family and Community Support Answer Sang e Recorded Help with Day to Day Activities Not on file 03/31/2024 Feeling Lonely or Isolated Not on file 03/31 Educational Attainment Answer Date Malcolm rded Speak language other than Haitian at home Not on file 03/31/2024 Want help with school or training Not on file 03/31/2024 Substance Use Answer Date Recorded Used prescription meds for non-medical reasons N ot on file 03/31/2024 Used illegal drugs past 12 months Not on file 03/31/2024 Sex and Gender Information Value Date Recorded Sex Assigned at Not on file Legal Sex Male 1:53 PM CDT Gender Identity Not on file Sexual Orientation Not on file Plan of Treatment Not on file Insurance [facility] MEDICAID
--- OUTSIDE RECORDS SUMMARY | 2025-06-13 09:58 | XMS_ITS | Data Portability ---
Author Organization [facility] [place] Address [address] [place] [address] Care Team Providers Care Frame Table Operator Helper Name Role Phone CINDY CH Referring Provider [phone] Assessment No assessment recorded. Plan of Treatment Reminders Order Date Submit Date Provider Last Modified By Organization Details Last Modified Time Details Appointments None recorded. Lab urinalysis, dipstick 2023 024 [facility] [address], [address], 4 12:23:24 Referral cardiologis t referral 2024 025 [email or web address] Korina Kapadia MD, [address] [place] [address] [place], [address], 5 17:08:19 Procedures bladder scan (PROC) 2023 024 [facility] [address], [address], 4 12:23:24 Surgeries None recorded. Imaging CT, abdomen + pelvis, w/wo contrast - ORAL ONLY 2023 024 [facility] ([facility] [address] [place] [address] [place], [address], 4 08:29:13 Medication Orders None recorded. Patient TargetsNo targets recorded. Patient InstructionsNo instructions recorded. Reason for Referral Residential Nurse Referral for Pr e-surgery evaluation Referring Physician: Abhinav Chao, General Surgery, Encounter Date: 09/28/2024 Results Created Date Observation Date Name Description Value Unit Range Abnormal Flag Note LastModifiedBy Organization Detail LastModifiedTime 07/06/2007/06/2024 urina lysis , dipst ick Leukocytes (reference range) small Not Available [address], [address], 07/06/2024 11:10:04 07/06/2007/06/2024 urina lysis , dipst ick Nitrite (reference range:) negati ve Not Available [address], [address], 07/06/2024 11:10:04 07/06/2007/06/2024 urina lysis , dipst ick Urobilinogen (reference range) 0.2 Not Available [address], [address], 07/06/2024 11:10:04 07/06/2007/06/2024 urina lysis , dipst ick Protein (reference range) negati ve Not Available [address], [address], 07/06/2024 11:10:04 07/06/2007/06/2024 urina lysis , dipst ick pH (reference range 5-8.5) 5.5 Not Available [address], [address], 07/06/2024 11:10:04 07/06/2007/06/2024 urina lysis , dipst ick Blood (reference range:) negati ve Not Available [address], [address], 07/06/2024 11:10:04 07/06/2007/06/2024 urina lysis , dipst ick Specific Jackson (reference range) 1.020 Not Available [address], [address], 07/06/2024 11:10:04 07/06/20 24 07/06/2024 urina lysis , dipst ick Ketone (reference range) negati ve Not Available [address], [address], 07/06/2024 11:10:04 07/06/20 24 07/06/2024 urina lysis , dipst ick Bilirubin (reference range) negati ve Not Available [address], [address], 07/06/2024 11:10:04 07/06/20 24 07/06/2024 urina lysis , dipst ick Glucose (reference range) negati ve Not Available [address], [address], 07/06/2024 11:10:04 07/06/2007/06/2024 bladd er scan (PROC ) Calculated Residual Urine: 62 ML Not Available [address], [address], 07/06/2024 11:10:06 08/16/20 24 08/16/2024 CT ABD/p joselin oral contr only [facility] [address] [place] [address] Phone: Fax: Name: ALICE CERDA Exam Date: 2023 : 946 Age 78 years Gender : M Access ion: [id number] Physic hayley: PAIGE CH Facili ty: [facility] Facili ty HSV: Outpat ient Exam: CT ABD/PE LVIS ORAL CONTR ONLY PROCED URE: CT ABDOME N PELVIS WITHOU T IV CONTRA ST CLINIC AL INDICA TION: Unilin guinal hernia . COMPAR ZULLY: None. TECHNI QUE: Helica l CT acquis ition perfor med of the abdome n and pelvis with blakely l and sagitt al reform ats. PO Contra st: Given. . Compli cation s: None. FINDIN GS: Evalua tion of vessel s and solid organs limite d withou t IV contra st. Lower thorax : No focal consol idatio ns or pleura l effusi ons. Free air: None Hepato biliar y system : Mildly nodula r morpho logy. Attenu ation normal . No intra- or extrah epatic biliar y ductal dilata tion. Puncta te calcif icatio ns, probab ly reflec ting prior granul omatou s diseas e. Gallbl adder: Approx imatel y 2 cm calcif ied stone. No wall thicke reyna or perich olecys tic free fluid. Spleen : Normal size. Puncta te calcif icatio ns, probab ly reflec ting prior granul omatou s diseas e. Pancre as: No focal masses . No pancre atic ductal dilata tion. No signif icant peripa ncreat ic inflam matory change s. Adrena l glands : No focal mass Kidney s and collec ting system : Mild cortic al thinni ng. Approx imatel y 1 cm left superi or pole nonobs tructi ng stone. Approx imatel y 1 cm interm ediate densit y struct ure arisin g from the latera l aspect of the left kidney , incomp letely charac terize d on single phase noncon trast study. Gastro intest inal: Oral contra st reache s the level of the cecum. Nonobs tructe d loops of both large and small bowel hernia pearl into the right side of the scrotu m throug h massiv e inguin al hernia . No defini te wall thicke reyna. No defini te inflam matory fat strand ing. Normal duoden al sweep. Append ix: Hernia pearl into the scrotu m. Normal calibe r. No signif icant inflam matory change s. Vascul ature: Aorta normal calibe r. Extens luis athero matous calcif icatio ns. Nodes: No signif icant lympha denopa thy. Pelvic organs : Prosta te and semina l vessel s presen t. Urinar y bladde r: Poorly disten ded. No signif icant wall thicke reyna. Free fluid: None. Soft tissue s: No signif icant inflam matory change s. No eviden ce for body wall hernia . Bones: Compre ssion fractu re of L3 involv ing up to approx imatel y 50% of Legall y authen ticate d by JACINTA RAMIREZ MD 2023-10-17 13:52: 36 verteb ral body height . Horizo ntal band of sclero sis crossi ng the L2 verteb ral body sugges tive of acute findin gs. No suspic ious bone lesion . Severe multil evel degene rative facet and disc change s. IMPRES DARIELA: Extens luis hernia tion of large and small bowel into the right side of the scrota l sac. No eviden ce for obstru ction. Total Exam CT Dose Index: 14.85 mGy Total Exam Dose Length Produc t: 910.24 mGy-cm CT Dose reduct ion techni ques were utiliz ed for this examin ation with 1 or more of the follow ing: Automa pearl exposu re contro l and/or adjust ment of the mA or kV accord ing to patien t size, and/or use of iterat luis recons tructi on techni que. This dictat ion was perfor med using voice recogn ition softwa re and some phonet ic and gramma tical errors may have been missed in proofr eading . Electr onical ly signed by: Oscar Prince i, MD 2023 03:36 PM EST RP Workst ation: [id number] Dictat ed By: Oscar Prince i Transc ribed By: Transc ribed On: 2023 1:52 PM Electr onical ly signed by: Oscar Prince i 2023 Thank you for referr ing [facility] Legall y authen ticate d by JACINTA RAMIREZ MD 2023-09 13:52: 36 CC'ed Logic: Orderi ng Provid er: JING Yi CC Provid er: JUAN F CISNEROS Attend ing Provid er: JING Yi Referr ing Provid er: JING Yi Admitt ing Provid er: JING PAIGE Yi [email or web address] [facility] ([facility]) [address] , [place], [address], 08/26/2024 10:09:43 Result Notes None recorded. Procedures Surgical History Date Name Laterality Status Provider Name and Address Organization Details Recorded Time procedure on hand completed Yudith Kenyon [facility] & [place] 07/06/2024 09:57:40 Imaging Results None recorded. Procedure Notes None recorded. Medical Equipment None Reported. Allergies No known drug allergies Medications Name Sig Start Date Stop Date Status Note LastModified by Organization Details LastModified Time doxycycline hyclate 100 mg capsule TAKE ONE CAPSULE BY MOUTH TWICE DAILY FOR 5 DAYS -- FINISH ALL MEDICINE -- active Not Available Not Available No t Available oxybutynin chloride ER 10 mg tablet,extende d release 24 hr TAKE 1 TABLET 1 TIME EACH DAY active Not Available Not Available No t Available doxepin 25 mg capsule TAKE 1 CAPSULE 1 TIME EACH DAY IN THE EVENING FOR SLEEP. active Not Available Not Available No t Available amlodipine 2.5 mg tablet TAKE 1 TABLET 1 TIME EACH DAY active Not Available Not Available No t Available amlodipine 5 mg tablet active Not Available Not Available No t Available sulfamethoxazo le 800 mg-trimethopri m 160 mg tablet TAKE 1 TABLET 2 TIMES EACH DAY FOR 10 DAYS active Not Available Not Available No t Available tamsulosin 0.4 mg capsule TAKE 1 CAPSULE 1 TIME EACH DAY active Not Available Not Available No t Available albuterol sulfate HFA 90 mcg/actuation aerosol inhaler active Not Available Not Available Not Available Vitals Date Recorded Body height Body mass index (BMI) Body weight Heart rate Oxygen saturation Oxygen saturation in Arterial blood by Pulse oximetry Body temperature Systolic And Diastolic Provider Name and Address Organization Details Last Updated DateTime 5 175.26 cm 27.2 kg/m2 84272.3 6 g 63 /min 99 % 99 % 97.8 [degF] 178/88 mm[Hg] Jackie SINGH [facility] & [place] 09:48:11 Date Recorded Body height Body mass index (BMI) Body weight Body temperature Provider Name and Address Organization Details Last Updated DateTime 07/06/2024 175.26 cm 25.1 kg/m2 75470.7 g 98.1 [degF] Yudith Kenyon [place] - [facility] & [place] 07/06/2024 10:01:52 Social History None recorded. Functional Status Question Answer Note LastModified by Organization D etails LastModified Time What is your level of alcohol consumption? Moderate [email or web address] Information not available 07/06/2024 Mental Status None recorded. Family History Relationship Description Onset Age of this Age Resolved Age Notes LastModified by Organization Details LastModified Time Mother Chronic obstructive pulmonary disease DEC Not available 2023 09:56:54 Father Malignant neoplasm of lung DEC [email or web address] Not available 2023 09:57:04 Sister Family history unknown [email or web address] Not available 2023 09:57:14 Medical History Condition Response Hypertension Y Past Encounters Encounter ID Performer Location Encounter Start Date Encounter Closed Date Diagnosis/Indication Diagnosis SNOMED-CT Code Diagnosis ICD10 Code Diagnosis IMO Codes Diagnosis Note [id number] Cindy Ch Jr, MD [facility] [address] [address] 07/06/2024 09:41:28 07/06/2024 11:11:13 Increased frequency of urination 101368930 R35.0 patient with lower urinary tract symptoms. His bladder scan today is only 62 cc. He is on tamsulosin and oxybutynin already. Inguinal hernia [id number] 0 K40.90 Patient with large right scrotal and inguinal mass. By exam this is consistent with an inguinal hernia. Patient has not had a CT scan performed. We will proceed with CT with oral contrast. He will follow up afterwards . Prostate s pecific antigen above reference range [id number] R97.20 patient with PSA 9.6 in February. Prostate examinatio n consistent with small nodules bilaterall y. We discussed possibilit y of prostate cancer and prostate biopsy discussed. We will proceed with the workup for his scrotal mass and talking more about it at his follow-up. [id number] DO Tawnya ORONA [address] [facility], [place] [address] 09/28/2024 09:27:42 09/28/2024 10:56:38 Right inguinal hernia [id number] K40.90 - discussed with the patient that he has an incarcerat ed bowel containing large right inguinal hernia- discussed with the patient surgical options including open and laparoscop ic repair- due to size reduction would be difficult and therefore patient to undergo diagnostic laparoscop y with reduction of right inguinal hernia with subsequent right inguinal hernia repair- discussed with the patient the risks ( including bleeding, infection, recurrence , bowel/test icular/ner ve injury), benefits, alternativ es to diagnostic laparoscop y with right inguinal hernia repair with mesh. 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 Patient will be admitted to the hospital but day prior to surgery for optimizati on and will likely be required to stay after surgery for monitoring Health Concerns Section Related Observation LastModified by Organization Detai ls LastModified Time None Recorded Concern Status LastModified by Organization Details LastModified Time None Recorded Advance Directives Directive None Recorded Payers Insurance Date Sequence Insurance Name Policy Number Policy Cisneros Covered Member ID Cisneros Member ID Guarantor Name 09/25/2024 1 [employer] (MEDICARE REPLACEMENT/A DVANTAGE - HMO) Luke Cerda [id number] Luke Cerda 07/06/2024 1 *SELF PAY* Gr quinten Cerda Notes Date Note Type Note Provider Name and Address Organization Details Recorded Time 07/06/2024 text/html ROS as noted in the HPI patient is a 78-year-old white male referred for 2nd opinion regarding testicular swelling and elevated PSA. Patient gives a 2 week history of some right testicular swelling. He denies any pain. He has seen a urologist in [facility] but did not wish to go through some studies that the physician had arranged. Patient did undergo ultrasound of the bladder, kidneys and inguinal area in [facility]. These were dated March 07, 2024. Renal ultrasound showed small left renal cyst evidence of obstruction, masses or stones. Bladder ultrasound revealed a residual of 120 cc no other abnormalities noted. Ultrasound of the inguinal areas were performed there was a enlarged probable right inguinal hernia noted. No evidence of left hernia. Scrotal ultrasound not apparently done.Patient also with a history of elevated PSA. His recent PSA in February was 9.6. Patient just moved to the area 3 months ago by report. His sister is with him today.Patient also complains of frequency of urination every 1/2 hour and nocturia 1-2 times. His bladder scan today is 62 cc. Cindy Ch Jr, MD [address] [place] [address], [address], [place], [address], [facility] [place] 07/06/2024 13:08:35 09/28/2024 text/html ROS as noted in the HPI 79-year-old male presents for evaluation for large right inguinal hernia. Patient was seen by Urology for scrotal swelling and was diagnosed with a large hernia. Patient underwent CT imaging which was personally reviewed with evidence of a large small and large bowel containing right inguinal hernia. Patient states that it is fairly symptomatic and causes him discomfort. Of note, patient does have a history of alcohol use and was recently admitted to the hospital 4-5 months ago and reportedly went through withdrawal symptoms. Patient denies cardiac history but has never seen a correctional security officer. ABHINAV CHAO DO [address], [address], [place], [address], [facility] - [facility] [place] 09/28/2024 12:42:34
--- OUTSIDE RECORDS SUMMARY | 2025-06-13 09:58 | XMS_ITS | Clinical Summary ---
Author Organization [facility] Address [address] [place] [address] Care Team Providers Care General Dentist Name Role Phone Calos Odom MD Primary Care Provider [phone] Allergies No known active allergies Medications bisoprolol (ZEBeta) 5 MG tablet Take 1 tablet by mouth Daily. 11/23/2024 Active NIFEdipine CC (ADALAT CC) 60 MG 24 hr tablet Take 1 tablet by mouth Daily. 11/23/2024 Active rosuvastatin (CRESTOR) 10 MG tablet Take 1 tablet by mouth Every Night. 11/30/2024 Active albuterol sulfate HFA 108 (90 Base) MCG/ACT inhaler Inhale 2 puffs Every 4 (Four) Hours As Needed for Wheezing. Active aspirin 81 MG EC tablet Take 1 tablet by mouth Daily. 02/10/2025 Active clopidogrel (PLAVIX) 75 MG tablet Take 1 tablet by mouth Daily. 02/10/2025 Active folic acid (FOLVITE) 1 MG tablet Take 1 tablet by mouth Daily. 02/10/2025 Active nicotine (NICODERM CQ) 21 MG/24HR patch Place 1 patch on the skin as directed by provider Every Night. 02/09/2025 Active pantoprazole (PROTONIX) 40 MG EC tablet Take 1 tablet by mouth Every Morning. 02/10/2025 Active sennosides-docu sate (PERICOLACE) 8.6-50 MG per tablet Take 2 tablets by mouth 2 (Two) Times a Day As Needed for Constipation. 02/09/2025 Active thiamine (VITAMIN B1) 100 MG tablet Take 1 tablet by mouth Daily. 02/10/2025 Active Active Problems Problem Noted Date Diagnosed Date Moderate protein-calorie malnutrition 02/07/2025 ETOH abuse 02/04/2025 Tobacco abuse 02/04/2025 Acute CVA (cerebrovascular accident) 02/04/2025 Abnormal nuclear stress test 11/16/2024 Assessment & Plan (11/16/2024 2:23 PM EDT): Nuclear stress test on 11/09/2024 revealed a moderate to large sized area of inferolateral ischemia. I discussed the result in detail with patient and his sister. We also discussed further cardiac testing, including left heart cath for further evaluation prior to hernia surgery. He is agreeable to left heart cath but will not drive to [place] for it. The only place he will go his [facility]. He declines to go anywhere else. - We will proceed with a left heart cath at [facility] for further evaluation. Aortic stenosis, moderate 11/16/2024 Assessment & Plan (11/16/2024 2:21 PM EDT): Echocardiogram from 11/02/2024 revealed moderate aortic stenosis. He is currently asymptomatic. - We will continue to monitor with annual echocardiogram Heart murmur 10/04/2024 Assessment & Plan (10/04/2024 3:11 PM EST): Heart murmur noted on exam today, concerning for aortic stenosis. - Will need an echocardiogram prior to cardiac clearance. Preoperative cardiovascular examination 10/04/19 25 Assessment & Plan (11/16/2024 2:23 PM EDT): Echocardiogram showed moderate aortic stenosis. Nuclear stress test revealed moderate to large sized area of inferolateral ischemia. He will need a left heart cath prior to cardiac clearance. Assessment & Plan (10/04/2024 3:11 PM EST): Patient will need an echocardiogram and nuclear stress test prior to cardiac clearance. Abnormal ECG 10/04/2024 Assessment & Plan (11/16/2024 2:21 PM EDT): EKG shows ST and T wave abnormality, possible lateral ischemia. Assessment & Plan (10/04/2024 3:11 PM EST): EKG shows ST and T wave abnormality, possible lateral ischemia. - Nuclear stress test after echocardiogram Hypertension Assessment & Plan (10/04/2024 3:15 PM EST): His blood pressure has been elevated recently and his primary care provider increased amlodipine to 5 mg once daily. He has not been taking it consistently and did not take it today, BP in clinic today is 158/104. He denies any current symptoms. He denies chest pain, dizziness, headache, palpitations or syncope. Alcoholism could also be contributing to elevated blood pressure - Instructed patient to take amlodipine today when he gets home today and take it consistently every day. - Continue to monitor blood pressure at home - Proceed with cardiac workup - May need to add an additional medication at follow-up visit Family History Medical History Relation Name Comments COPD Father Emphysema Father Lung cancer Mother Heart disease Sister Hypertension Sister Relation Name Status Comments Father Mother Sister Social History Tobacco Use Types Packs/Day Years Used Date Smoking Tobacco: Every Day Cigarettes Passive Smoke Exposure: Current Smokeless Tobacco: Never Tobacco Cessation:Ready to Q uit: No; Counseling Given: No Alcohol Use Standard Drinks/Week Comments Yes 0 (1 standard drink = 0.6 oz pure alcohol) 1 pint bourbon and 6 pack beer q 2 days AUDIT-C Answer Date Recorded Q1: How often do you have a drink containing alcohol? 4 or more times a week 02/06/2025 Q2: How many drinks containi ng alcohol do you have on a typical day when you are drinking? 3 or 4 Q3: How often do you have si x or more drinks on one occasion? Weekly 02/06/2025 Abuse Screen Answer Date Recorded Feels Unsafe at Home or Work/School no 02/06/2025 Feels Threatened by Someone no 10/2024 Does Anyone Try to Keep You From Having Contact with Others or Doing Things Outside Your Home? no 02/06/2025 Physical Signs of Abuse Present no 02/06/2025 Housing Stability Answer Date Recorded Current Living Arrangements home 10/2024 Potentially Unsafe Housing Conditions unable to assess 02/06/2025 Disabilities Answer Date Recorded Difficulty Concentrating, Remembering or Making Decisions no 02/06/2025 Difficulty Managing Errands Independently yes 02/06/2025 Education Answer Date Recorded Help with school or training? Not on file Preferred Language Austrian 02/06/2025 Sex and Gender Information Value Date Recorded Sex Assigned at Not on file Legal Sex Male 10:40 AM EST Gender Identity Not on file Sexual Orientation Not on file Last Filed Vital Signs Vital Sign Reading Time Taken Comments Blood Pressure 145/63 02/09/2025 11:00 AM EDT Pulse 65 02/09/2025 11:00 AM EDT Temperature 36.5 C (97.7 F) 02/09/2025 11:00 AM EDT Respiratory Rate 16 02/09/2025 11:00 AM EDT Oxygen Saturation 96% 02/09/2025 11:00 AM EDT Inhaled Oxygen Concentration - - Weight 86.6 kg (191 lb) 02/07/2025 11:54 AM EDT Height 175.3 cm (5' 9.02 ) 02/07/2025 11:54 AM E DT Body Mass Index 28.19 02/07/2025 11:54 AM EDT Plan of Treatment Health Maintenance Due Date Last Done Comments Pneumococcal Vaccine 50+ (1 of 2 - PCV) 1964 TDAP/TD VACCINES (1 - Tdap) 1964 ZOSTER VACCINE (1 of 2) 1995 RSV Vaccine - Adults (1 - 1-dose 75+ series) ANNUAL WELLNESS VISIT 09/29/2024 HEPATITIS C SCREENING 09/29/2024 INFLUENZA VACCINE 04/07/2025 COVID-19 Vaccine ( - 2023- season) 2025 Insurance MEDICARE ADVANTAGE HMO Advance Directives * CPR (Attempt to Resuscitate) (Latest Code Status on File) Date Activated Date Inactivated Comments 02/05/2025 11:34 AM 02/09/2025 4:42 PM Question Answer Comments Code Status (Patient has no pulse and is not breathing): CPR (Attempt to Resuscitate) Medical Interventions (Patie nt has pulse or is breathing): Full Support Care Teams General Dentist Relationship Specialty Start Date End Date Calos Odom MD [address] [place] [address] [facility], [place] [address] PCP - General Family Medicine 09/30/24
--- OUTSIDE RECORDS SUMMARY | 2025-06-13 09:58 | XMS_ITS | Clinical Summary ---
Author Organization [facility] ([place], [place], [place], [place]) Address [address] [place] [address] Care Team Providers Care Drywall Taper Name Role Phone Unavailable Primary Care Provider [...] Date Malcolm rded Speak language other than Uzbek at home Not on file 03/31/2024 Want [...] Plan of Treatment Not on file Insurance [employer]
[2025-06-13 10:17] LABS: Hematocrit 41.4 % (42.0-52.0); Hemoglobin 13.3 g/dL (14.1-18.0); Mean Corpuscular HGB Conc 32.1 g/dL (31.8-35.4); Mean Corpuscular Hemoglobin 28.9 pg (27.0-31.2); Mean Corpuscular Volume 89.8 fl (80-94); Platelet Count 241 K/mm3 (142-424); Red Blood Count 4.61 M/mm3 (4.60-6.20); White Blood Count 6.9 K/mm3 (4.8-10.8)
[2025-06-13 10:37] LABS: Total Cells Counted 100
[2025-06-13 10:38] LABS: RBC Morphology Normal
[2025-06-13 13:16] LABS: Chloride 101 mmol/L (98-107); Sodium 137 mmol/L (136-145)
[2025-06-13 13:17] LABS: Potassium 4.0 mmoL/L (3.5-5.1)
[2025-06-13 13:20] LABS: Anion Gap 17.0 mEq/L (5-15); Blood Urea Nitrogen 23 mg/dl (9-20); Calcium 9.6 mg/dl (8.4-10.2); Carbon Dioxide 23 mmol/L (22.0-30.0); Creatinine Clearance Estimated 58 mL/min (50-200); Creatinine,Serum 1.20 mg/dl (0.66-1.25); Estimated Glomerular Filt Rate 58 ml/min (>60); GFR (African American) 71 ML/MIN (>60); Glucose 128 mg/dl (74-100)
== END 2025-06-13 23:59 | disposition home or self-care (01) ==
LOC: PREOP 09:54
PROVIDERS: PCP Family Medicine; Visit Provider Otolaryngology
DX: Z01.811 Encounter for preprocedural respiratory examination (principal); Z01.812 Encounter for preprocedural laboratory examination
CPT/HCPCS: 71046; 80048; 85007; 85014; 85018; 85048; 85049

== ENCOUNTER 2025-06-19 08:34 | Day surgery (SDC) | payer MEDICARE, SELFPAY ==
[2025-06-13 13:46] VITALS: BMI 26.9
[2025-06-19] VITALS (10 sets, daily range): BP systolic 114–146; BP diastolic 58–93; PULSE 65–77; RESP 16–18; TEMP 36.1–36.6; O2SAT 93–97; BMI 26.9
[2025-06-19] MEDS: LIDOCAINE 1% W/EPI 1:100,000 20ML VIAL 20 ML (10:50)
[2025-06-19] MEDS: OXYMETAZOLINE NASAL SPRAY 0.05% 15ML 15 ML NS (10:50)
--- NOTE | 2025-06-19 11:02 | P.OP_ITS ---
Date of procedure: 06/19/25 Pre-op Diagnosis:: Left epiglottic mass Post-op Diagnosis:: Same/pathology pending Procedure performed:: Microscopic direct laryngoscopy with biopsy of left epiglottis Surgeon:: Calos Machado III, MD Programmer Operator Numerical Control(s):: None LAMINATION ASSEMBLER:: Guero Torres Anesthesia: GETJuan A Estimated blood loss (mL): 10 Operative findings:: Fungating mass on lingual surface of left side of epiglottis Operative note:: The patient was brought to the operating room placed under general endotracheal anesthesia with an TECHNOLOGY SALES SPECIALIST tube. I applied a mouthpiece to protect his upper in cisors. His teeth were in poor condition with significant caries. Using the suspension laryngoscope, I was able to inspect the entire hypopharynx and laryngeal area. The vocal cords in the glottic area appeared healthy however on the left lateral lingual surface of the epiglottis I noted a fungating mass. Using the biopsy forcep under microscopic guidance, I removed several pieces of the mucosa that was papillomatous in appearance. Topical Afrin and 1% lidocaine with epinephrine were applied topically. There is very little bleeding noted after this was applied. The patient was then awakened in the operating room and taken the recovery in good condition. The estimated blood loss approximately 10 mL. Condition: stable Disposition: PACU Complications:: none
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
--- NOTE | 2025-06-19 11:06 | P.PNANES_ITS ---
[facility] Anesthesia Record Part I Anesthesia Record I Intake, IV Amount: 600 Hydration: Adequate Estimated blood loss (mL): 1 Urine output (mL): 0 Blood Products used (#): none Blood Pressure: 128/72 SaO2: 94 Pulse Rate: 77 Airway Patency: Patent Respiratory Rate: 16 Temperature: 97.9 F Patient is:: Drowsy and Stable Stable to PACU at:: 11:05
[2025-06-19] MEDS: MORPHINE 2MG/ML SYRINGE 2 MG IV (11:25)
--- NOTE | 2025-06-19 12:57 | P.PNANES_ITS ---
[facility] Anesthesia Record Part II Anesthesia Record Part II Discharge Time: 11:35 Destination: Surgical Day Care (OP Surgery) PACU nurse assessment reviewed?: Yes Patient Condition:: Good Anesthesia Complications:: None Swallowing reflex intact?: Yes Airway Patency: Patent Cyanosis?: No Blood Pressure: 114/67 SaO2: 94 Respiratory Rate: 18 Pulse Rate: 70 Temperature: 97.5 F Mental Status: Alert & Oriented Pain level:: 6 Nausea and/or vomitting:: None Intake, IV Amount: 0 Hydration: Adequate
== END 2025-06-19 12:11 | disposition home or self-care (01) ==
PROVIDERS: PCP Family Medicine; Visit Provider Otolaryngology
PROC: 0CJS8ZZ Inspection of Larynx, Via Natural or Artificial Opening Endoscopic (ICD-10-PCS; principal; 2025-06-19 10:15)
DX: D02.0 Carcinoma in situ of larynx (principal); I25.10 Atherosclerotic heart disease of native coronary artery without angina pectoris; E78.5 Hyperlipidemia, unspecified; I10 Essential (primary) hypertension; F17.210 Nicotine dependence, cigarettes, uncomplicated; Z86.73 Personal history of transient ischemic attack (TIA), and cerebral infarction without residual deficits; Z89.202 Acquired absence of left upper limb, unspecified level; Z79.82 Long term (current) use of aspirin; Z79.02 Long term (current) use of antithrombotics/antiplatelets; Z79.899 Other long term (current) drug therapy
CPT/HCPCS: 31536; 88305; 88360; J1100; J2003; J2004; J2270; J2405; J2704; J3010